=== PATIENT | female | born 1940 | race Caucasian/White ===

== ENCOUNTER → 2016-10-21 | Outpatient (CLI) | payer OTHER | LOC: BMCIMAGING 09:43 | PROVIDERS: ATTEND Internal Medicine | DX: Z01.811 Encounter for preprocedural respiratory examination (principal); R91.8 Other nonspecific abnormal finding of lung field; M41.25 Other idiopathic scoliosis, thoracolumbar region ==

== ENCOUNTER → 2016-10-24 | Outpatient (CLI) | payer OTHER | LOC: CIMAGING 14:00 | PROVIDERS: ATTEND Internal Medicine | DX: R91.8 Other nonspecific abnormal finding of lung field (principal) | CPT/HCPCS: 71250-PO ==

== ENCOUNTER 2016-10-30 07:15 | Inpatient (IN) | payer OTHER ==
[2016-11-04] MEDS ORDERED: ONDANSETRON 4 MG/2 ML VIAL ONE (12:44)
[2016-11-04] MEDS ORDERED: MIDAZOLAM 2 MG/2 ML VIAL ONE (12:45)
[2016-11-04] MEDS ORDERED: FLUMAZENIL 0.5 MG/5 ML MDV IVP ONE (12:45)
[2016-11-04] MEDS ORDERED: fentaNYL 100 MCG/2 ML INJ ONE (12:45)
[2016-11-04] MEDS ORDERED: NALOXONE HCL 0.4 MG/ML INJ ONE (12:45)
[2016-11-20] MEDS ORDERED: LIDOCAINE 1% 2 ML INJ ONE (05:50)
[2016-11-20] MEDS ORDERED: ceFAZolin 2 GM/DEXTROSE 100 ML IV ONE (06:00)
[2016-11-20] MEDS ORDERED: DEXAMETHASONE 10 MG/ML VIAL IVP ONE (06:00)
[2016-11-20] MEDS ORDERED: LIDOCAINE 1% 5 ML SDV ID PRN (06:08)
[2016-11-20] MEDS ORDERED: LR 1,000 ML IV ONE (06:08)
[2016-11-20] MEDS ORDERED: THROMBIN (BOVINE) 20,000 UNIT VIAL TP ONE (06:32)
[2016-11-20] MEDS ORDERED: BACITRACIN 50,000 UNITS/10 ML SYR IRR ONE (06:33)
[2016-11-20] MEDS ORDERED: BUPIVACAINE/EPI 0.25% 30 ML SDV ONE (06:33)
[2016-11-20] MEDS ORDERED: MIDAZOLAM 2 MG/2 ML VIAL ONE (06:59)
[2016-11-20] MEDS ORDERED: REMIFENTANIL HCL 1 MG VIAL ONE ×2 (07:15→11:48)
[2016-11-20] MEDS ORDERED: LIDOCAINE 2% 5 ML SDV ONE (07:15)
[2016-11-20] MEDS ORDERED: ONDANSETRON 4 MG/2 ML VIAL ONE (07:15)
[2016-11-20] MEDS ORDERED: PROPOFOL/EMULSION 500 MG/50 ML BOTTLE IV ONE ×2 (07:15→07:20)
[2016-11-20] MEDS ORDERED: ROCURONIUM 50 MG/5 ML VIAL ONE (07:15)
[2016-11-20] MEDS ORDERED: fentaNYL 100 MCG/2 ML INJ ONE ×3 (07:15→14:34)
[2016-11-20] MEDS ORDERED: RANITIDINE 50 MG/2 ML VIAL ONE (07:21)
[2016-11-20] MEDS ORDERED: AMINOCAPROIC ACID IV ONE ×2 (07:30)
[2016-11-20] MEDS ORDERED: D5W IV ONE ×2 (07:30)
[2016-11-20] MEDS ORDERED: epHEDrine SULFATE 10 MG/ML SYR ONE ×3 (07:35→08:50)
[2016-11-20] MEDS ORDERED: CITRATE DEXTROSE SOLN 500 ML BAG ONE (08:07)
[2016-11-20] MEDS ORDERED: ceFAZolin 1 GM VIAL ONE ×2 (11:51)
[2016-11-20] MEDS ORDERED: PHENYLEPHRINE 10 MG/ML SDV ONE ×2 (11:53)
[2016-11-20 11:56] LABS: BICARBONATE 20 mEq/L (22-26); IONIZED CALCIUM 1.01 MMOL/L (1.12-1.30); MEASURED OXYGEN SATURATION 100 % (92-95); PCO2 34 mmHg (34-38); PO2 293 mmHg (65-75); SODIUM ABG 140 mEq/L (137-146); TCO2 21 mEq/L (23-27)
[2016-11-20] MEDS ORDERED: CALCIUM CHLORIDE 1 GM/10 ML INJ ONE (12:26)
[2016-11-20] MEDS ORDERED: ALBUMIN 5% 250 ML BOTTLE IV ONE (12:43)
[2016-11-20] MEDS ORDERED: POLYETHYLENE GLYCOL 3350 17 GM PKT PO PRN (13:46)
[2016-11-20] MEDS ORDERED: DIAZEPAM 5 MG TAB PO PRN (13:46)
[2016-11-20] MEDS ORDERED: DIAZEPAM 10 MG/2 ML SYR IVP PRN (13:46)
[2016-11-20] MEDS ORDERED: diphenhydrAMINE 25 MG CAP PO PRN ×2 (13:46)
[2016-11-20] MEDS ORDERED: ACETAMINOPHEN 325 MG TAB PO PRN (13:46)
[2016-11-20] MEDS ORDERED: LACTULOSE 20 GM/30 ML UDCUP PO PRN (13:46)
[2016-11-20] MEDS ORDERED: HYDROmorphONE/DILAUDID 1 MG/ML SYR IVP PRN (13:46)
[2016-11-20] MEDS ORDERED: METHOCARBAMOL 750 MG TAB PO PRN (13:46)
[2016-11-20] MEDS ORDERED: BISACODYL 10 MG SUPP PR PRN (13:46)
[2016-11-20] MEDS ORDERED: ONDANSETRON 4 MG/2 ML VIAL IVP PRN (13:46)
[2016-11-20] MEDS ORDERED: MAGNESIUM HYDROXIDE 30 ML UDCUP PO PRN (13:46)
[2016-11-20 13:56] LABS: BASE EXCESS -2.5 mEq/L (-2.5-2.5); BICARBONATE 23 mEq/L (22-26); MEASURED OXYGEN SATURATION 98 % (92-95); PCO2 44 mmHg (34-38); PO2 113 mmHg (65-75); TCO2 24 mEq/L (23-27)
[2016-11-20] MEDS ORDERED: NS W/ 20 KCl/L 1,000 ML IV SCH (14:00)
--- NOTE | 2016-11-20 14:24 | POSTOPPROG ---
Post Op Note Date of Operation: 11/20/16 Surgeon: Zoe Pearce Service Desk Specialist: Kyung Perez PA-C Anesthesia: GET(General Endotracheal) Pre-op Diagnosis: Lumbar stenosis Post-op Diagnosis: Lumbar stenosis Procedure: Transforaminal lumbar interbody fusion at L3-S1 Inf/Abcess present in the surg proc area at time of surgery?: No Depth: Deep Incisional (Fascial) EBL: 100-500 A/P Assessment: 76 yo female s/p TLIF L3-S1 Plan: - neuro checks - pain control - advance diet as tolerated - ROBIN drain x 1 - postop L-spine x-rays in am - PT/OT - wear brace when OOB Exam: Awake. Alert. PERRL. EOMI Following commands LE strength 5/5 Sensation intact Incision with dressing c/d/i
--- NOTE | 2016-11-20 14:32 | GOP ---
[f rep st] OPERATIVE REPORT DATE OF OPERATION: SURGEON: Zoe Pearce DO NEUROSURGEON: Zoe Pearce DO. GRAPHIC SPECIALIST: RAEANN. PREOPERATIVE DIAGNOSIS: Lumbar spondylosis, lumbar stenosis, lumbar radiculopathy. POSTOPERATIVE DIAGNOSIS: Lumbar spondylosis, lumbar stenosis, lumbar radiculopathy. PROCEDURE PERFORMED: L3-4, L4-5, L5-S1 transforaminal lumbar interbody fusion with L3, L4, L5, S1 p osterior pedicle screws with Medtronic 4.75 Solera screws, Medtronic 7 x 23 mm Elevate cage at L3-4 and 8 x 23 mm cage at L5-S1, and at L4-5 Medtronic Mancos PEEK graft x2, 7 x 25 mm. Autograft, al lograft, bone morphogenetic protein, Stealth stereotaxis, microscope, neuromonitoring. FINDINGS: SPECIMENS: None. ESTIMATED BLOOD LOSS: 500 mL. INDICATIONS: This is a 76-year-old female with back pain and leg pain whose case was presented in [facility] case conference. She had some scoliosis, some degenerative spondylosis, stenosis, back pain, and leg pain, and it was recommended that she undergo a posterior L3-4, L4-5, L5-S1 inter body fusion. She elected to move forward with surgery. DESCRIPTION OF PROCEDURE: She was identified, consented. Sites were marked. Brought into the oper ating room, anesthetized under general endotracheal tube anesthesia, rolled onto the OR bed with the Codey table. All pressure points were appropriately padded. She was prepped and draped in the u sual sterile fashion. O-arm was brought in, and incision was marked using 18-gauge spinal needles. Incision was anesthetized with 0.25% Marcaine with epinephrine. Incision was made with a 10 blade. Hemostasis was obtained with Bovie, bipolar, and Aquamantys. We dissected down onto the laminae o f L3, L4, L5, and S1 and out around the facet joints at these levels. X-ray verified we were in the appropriate position. Placed a Thomas-Krenn stereotactic arm, performed a stereotactic spin. Using the awl stereotactically, we found a starting point for the S1 screw on the left and then use d the Powerease 5.5 tap to stereotactically tap and measure a 6.5 x 40 mm screw. We then stereotact ically placed a 6.5 x 40 mm screw at S1 on the left using the Mirametrixtronic Solera system. We then perf ormed the same procedure at L5 on the left, using a ball-tip probe to verify the screw holes were in good position prior to placing the screws. Placed a 6.5 x 45 mm screw, then, at L4 on the left, pl aced a 6.5 x 45 mm screw using the same procedure. At L3 on the left, placed a 6.5 x 50 mm screw us ing the same procedure, then went over to the right. On the right, placed a 6.5 x 45 mm screw at S1 using the same stereotactic procedure. At L5, placed a 6.5 x 45 mm screw, at L4 a 6.5 x 45 mm scre w, and at L3 a 6.5 x 50 mm screw, all using the same stereotactic procedure. We stimmed all screws. All screws stimmed above 20. We then performed a stereotactic spin. All screws were in the appro priate positions and were satisfactory. We then measured and bent the rods appropriately, placed th e right-sided aleena, placed caps, and then locked the inferior cap, verifying we had aleena below it, the n placed distraction on this level to get some correction of her scoliotic curve at these levels, lo cking caps using the antitorque device. We then placed a aleena, elected not to place distraction on t he other side so as not to exaggerate the curve any further, measured and placed the aleena, locked the caps down with the final asset protection officer. We then used the Leksell to remove the spinous process, inters pinous ligament, and then used a high-speed drill to stereotactically drill out the facet joints on the left side, as the TLIF was going to be performed from the right. Once the facet joints were ruddy ified to be drilled out and there was no further soft tissue in the facet joints and we had decortic ated the entire left side, we used the high-speed drill to perform laminectomy, complete facetectomy at L3-4, L4-5, and L5-S1, extending this with 2, 3, and 4 Kerrisons until we had completely bilater ally decompressed the thecal sac and completely decompressed the foramina at L3-4, L4-5, and L5-S1 p edicle to pedicle. We then used the Medtronic nerve root retractor to retract the thecal sac medial ly at L5-S1, entered the disk space with an 11 blade, and removed the disk space with pituitaries an d a series of sequential itzel. Once the disk and cartilaginous endplate had been removed, we pre pared the endplates with a ring curette and then measured an 8 x 23 mm Elevate cage, which was packe d with BMP and the patient's own bone. We packed BMP and the patient's own bone anteriorly in the d isk space, then tamped the cage into place, verified it was in good position on AP and lateral, and then fully discharged the Elevate cage to its fullest extent, removed the applicator, moved up to L4 -5, which was the tightest disk space. Retracting the thecal sac medially with a Mirametrixtronic nerve ro ot retractor, entered the disk space with an 11 blade, and used small sequential itzel to complete ly remove the disk and cartilaginous endplate, preparing the endplate with a ring curette. We were only able to place Mancos cages here. I was able to tamp in two 7 x 25 mm Mancos cages, which w ere verified to be in the appropriate position under AP and lateral fluoroscopy. We had filled both cages with BMP and the patient's own bone, as well as the anterior aspect of the disk space with BM P and the patient's own bone. We then moved up to L5-S1 and, retracting the nerve root medially wit h a Mirametrixtronic nerve root retractor, entered the disk space with an 11 blade and removed the disk wit h pituitaries and sequential itzel until we had removed the cartilaginous endplate, prepared the e ndplate with ring curette, and then measured a 7 x 23 mm Elevate cage, packed BMP and the patient's own bone anteriorly, packed the cage with BMP and the patient's own bone, and tamped it into place. Under AP and lateral fluoroscopy, it was in good position. We then verified with final x-ray that we were in good position, copiously irrigated with over 2 L of bacitracin-infused saline, placed BMP and Progenix Plus as well as the patient's own harvested bone out laterally in the lateral recesses as well as into the facet joints that had been decorticated on the left side. We then attempted to place a crosslink; however, there was not an appropriate position to place the crosslink, so we jaycee ndoned this. We trocar'd a drain out inferiorly, placed it into the subfascial space, closed the fa scia with 0 Vicryl pop-offs, subcutaneous layer with 2-0 Vicryl pop-offs, subcutaneous layer with 3- 0 Vicryl pop-offs. The skin was closed with a 4-0 running Monocryl, Steri-Strips. The drain was ve rified not to be sutured to the fascia but was easily able to be removed. We then sutured it to sec ure it with a 2-0 Vicryl pop-off, placed it to bulb suction. The wound was dressed with Xeroform, T egaderm, and Medipore tape. The patient tolerated procedure well. No complications. FLUIDS: 3 L crystalloid, 250 mL albumin. URINE OUTPUT: 1200 mL crystalloid. DRAINS: One ROBIN in the subfascial space to bulb suction. COMPLICATIONS: None. /[id number]/MODL
[2016-11-20 14:36] LABS: SODIUM 141 mEq/L (134-144)
[2016-11-20 14:40] LABS: IONIZED CALCIUM 1.36 MMOL/L (1.12-1.30)
[2016-11-20] MEDS: GABAPENTIN 400 MG CAP PO SCH ×2 (15:51→21:00)
[2016-11-20] MEDS: GABAPENTIN 100 MG CAP PO SCH ×2 (15:51→21:00)
[2016-11-20] MEDS: HYDROmorphONE/DILAUDID 2 MG TAB PO PRN ×3 (16:38→23:40)
[2016-11-20] MEDS: SENNOSIDES/DOCUSATE SODIUM TAB PO SCH (19:55)
[2016-11-20] MEDS: ONDANSETRON DISINTEGRATING 4 MG TAB PO PRN ×2 (21:00→23:42)
[2016-11-21] MEDS: HYDROmorphONE/DILAUDID 2 MG TAB PO PRN ×4 (04:06→18:40)
[2016-11-21] MEDS: ONDANSETRON DISINTEGRATING 4 MG TAB PO PRN ×4 (04:07→18:40)
[2016-11-21 05:27] LABS: % IMMATURE GRANULYOCYTES 0.4 % (0.0-1.1); ABSOLUTE IMMATURE GRANULOCYTES 0.04 10^3/uL (0.00-0.10); ADD DIFF? NO; ADD MORPH? NO; ADD SCAN? NO; ATYPICAL LYMPHOCYTE FLAG 0 (0-99); FRAGMENT RBC FLAG 0 (0-99); HEMATOCRIT 26.4 % (38.0-47.0); HEMOGLOBIN 8.4 g/dL (12.6-16.3); LEFT SHIFT FLG 0 (0-99); LIPEMIA HEMOLYSIS FLAG 80 (0-99); MEAN CELL HEMOGLOBIN 31.2 pg (27.9-34.1); MEAN CELL HEMOGLOBIN CONCENTR. 31.8 g/dL (32.4-36.7); MEAN CELL VOLUME 98.1 fL (81.5-99.8); MEAN PLATELET VOLUME 10.7 fL (8.7-11.7); PLATELET CLUMPS FLAG 0 (0-99); PLATELET COUNT 195 10^3/uL (150-400); RED BLOOD CELL COUNT 2.69 10^6/uL (4.18-5.33); RED CELL DISTRIBUTION WIDTH 12.9 % (11.5-15.2)
[2016-11-21 05:46] LABS: ANION GAP 6 mEq/L (8-16); CALCIUM 8.3 mg/dL (8.5-10.4); CARBON DIOXIDE 27 mEq/l (22-31); CHLORIDE 105 mEq/L (97-110); CREATININE 0.6 mg/dL (0.6-1.0); GLOMERULAR FILTRATION RATE > 60; GLUCOSE 102 mg/dL (70-100); POTASSIUM 4.3 mEq/L (3.5-5.2); SODIUM 138 mEq/L (134-144)
[2016-11-21] MEDS: CHOLECALCIFEROL VIT D3 1,000 UNITS TAB PO SCH (08:31)
[2016-11-21] MEDS: GABAPENTIN 100 MG CAP PO SCH ×3 (08:31→20:24)
[2016-11-21] MEDS: GABAPENTIN 400 MG CAP PO SCH ×3 (08:31→20:24)
[2016-11-21] MEDS: SENNOSIDES/DOCUSATE SODIUM TAB PO SCH ×2 (08:31→20:24)
[2016-11-21] MEDS: PANTOPRAZOLE SODIUM 40 MG TAB PO SCH (08:33)
--- NOTE | 2016-11-21 08:54 | NEUSURGPN ---
Assessment/Plan: 76 yo female s/p TLIF L3-S1, POD#1 Plan: - neuro checks - pain control - advance diet as tolerated - ROBIN drain x 1 - postop L-spine x-rays in am - PT/OT - wear brace when OOB Catheter Insertion Date: 11/20/16 Neurosurgery Physical Exam - Vitals, I&O, Labs I and O 11/20/16 11/21/16 11/22/16 05:59 05:59 05:59 Intake Total 5175 Output Total 3330 Balance 1845 Weight 54.431 kg Intake: Oral (ml) 600 IV Intake (ml) 3350 IV Infused (ml) 1225 NS W/ 20 KCl/L 1,000 ml @ 1125 75 mls/hr IV CONT PELON Rx #:[id number] ceFAZolin 1 GM/DEXTROSE 100 50 ml @ 200 mls/hr IV Q8H PELON Rx#:[id number] Output: Urine (ml) 2550 Catheter 2550 Estimated Blood Loss (ml) 500 Wound Drainage (ml) 280 Posterior Back Codey 280 Artis Vital Signs Temp Pulse Resp BP Pulse Ox 36.8 C 85 16 91/36 L 97 11/21/16 07:47 11/21/16 07:47 11/21/16 07:47 11/21/16 07:47 11/21/16 07:47 Laboratory Results 11/21/16 04:53 11/21/16 04:53 ICD10 Worksheet Patient Problems: Problems Problem Status Onset Primary osteoarthritis of right hip Acute
--- NOTE | 2016-11-21 08:55 | NEUSURGPN ---
Assessment/Plan: 76 yo female s/p TLIF L3-S1, POD#1 Plan: - neuro checks - pain control - advance diet as tolerated - ROBIN drain x 1 - 280 out so far, leave in place. - postop L-spine x-rays pending - TEDs, SCDs, lovenox 11/22 - PT/OT - Roberts is out - wear brace when OOB - Patient seen with Dr Pearce this AM - Please call NS with any issues Subjective: Pt resting in bed, c/o back pain. Denies leg pain. Pain medications helping. Objective: AAOx3 NAD VSS MAEx4 Motor 5/5 BLE Incision dressed cdi +LT ROBIN productive Roberts out Urinary Catheter in Place: No Catheter Insertion Date: 11/20/16 - Physician Discussed Patient with : Ramses Patient Seen by : Ramses Neurosurgery Physical Exam - Vitals, I&O, Labs I and O 11/20/16 11/21/16 11/22/16 05:59 05:59 05:59 Intake Total 5175 Output Total 3330 Balance 1845 Weight 54.431 kg Intake: Oral (ml) 600 IV Intake (ml) 3350 IV Infused (ml) 1225 NS W/ 20 KCl/L 1,000 ml @ 1125 75 mls/hr IV CONT PELON Rx #:[id number] ceFAZolin 1 GM/DEXTROSE 100 50 ml @ 200 mls/hr IV Q8H PELON Rx#:[id number] Output: Urine (ml) 2550 Catheter 2550 Estimated Blood Loss (ml) 500 Wound Drainage (ml) 280 Posterior Back Codey 280 Artis Vital Signs Temp Pulse Resp BP Pulse Ox 36.8 C 85 16 91/36 L 97 11/21/16 07:47 11/21/16 07:47 11/21/16 07:47 11/21/16 07:47 11/21/16 07:47 Laboratory Results 11/21/16 04:53 11/21/16 04:53 ICD10 Worksheet Patient Problems: Problems Problem Status Onset Primary osteoarthritis of right hip Acute
[2016-11-22] MEDS: HYDROmorphONE/DILAUDID 2 MG TAB PO PRN ×3 (05:26→20:31)
[2016-11-22] MEDS: ONDANSETRON DISINTEGRATING 4 MG TAB PO PRN ×3 (05:26→20:30)
--- NOTE | 2016-11-22 08:53 | NEUSURGPN ---
Assessment/Plan: 76 yo female s/p TLIF L3-S1, POD#2 Plan: - neuro checks - Optimize pain control - advance diet as tolerated - ROBIN drain x 1 - postop L-spine x-rays pending - TEDs, SCDs, lovenox 11/22 - PT/OT - wear brace when OOB - Patient discussed with Dr Pearce this AM\ -Will place case management consult for rehab planning in the next 1-2days - Please call NS with any issues Subjective: low back pain, leg weakness stable Objective: AAOx3 NAD MAEx4 Motor 5/5 BLE Incision dressed cdi ROBIN Serosanguineous Catheter Insertion Date: 11/20/16 - Physician Discussed Patient with Dr.: Ramses Neurosurgery Physical Exam - Vitals, I&O, Labs I and O 11/21/16 11/22/16 11/23/16 05:59 05:59 05:59 Intake Total 5175 2300 Output Total 3330 611 Balance 1845 1689 Weight 54.431 kg Intake: Oral (ml) 600 2300 IV Intake (ml) 3350 IV Infused (ml) 1225 NS W/ 20 KCl/L 1,000 ml @ 1125 75 mls/hr IV CONT PELON Rx #:[id number] ceFAZolin 1 GM/DEXTROSE 100 50 ml @ 200 mls/hr IV Q8H PELON Rx#:[id number] Output: Urine (ml) 2550 300 Catheter 2550 Toilet 300 Estimated Blood Loss (ml) 500 Wound Drainage (ml) 280 311 Posterior Back Codey 280 311 Artis Other: Number of Voids Toilet 1 1 Vital Signs Temp Pulse Resp BP Pulse Ox 36.8 C 85 18 106/40 L 91 L 11/22/16 08:26 11/22/16 08:26 11/22/16 08:26 11/22/16 08:26 11/22/16 08:26 Laboratory Results 11/21/16 04:53 11/21/16 04:53 ICD10 Worksheet Patient Problems: Problems Problem Status Onset Primary osteoarthritis of right hip Acute
[2016-11-22] MEDS: GABAPENTIN 100 MG CAP PO SCH ×3 (09:11→20:30)
[2016-11-22] MEDS: SENNOSIDES/DOCUSATE SODIUM TAB PO SCH ×2 (09:12→20:30)
[2016-11-22] MEDS: PANTOPRAZOLE SODIUM 40 MG TAB PO SCH (09:12)
[2016-11-22] MEDS: ENOXAPARIN 40 MG/0.4 ML SYR SC SCH (09:12)
[2016-11-22] MEDS: CHOLECALCIFEROL VIT D3 1,000 UNITS TAB PO SCH (09:12)
[2016-11-22] MEDS: GABAPENTIN 400 MG CAP PO SCH ×3 (09:12→20:30)
[2016-11-23 01:56] VITALS: O2SAT 95
[2016-11-23] MEDS: ONDANSETRON DISINTEGRATING 4 MG TAB PO PRN ×2 (05:22→10:46)
[2016-11-23] MEDS: HYDROmorphONE/DILAUDID 2 MG TAB PO PRN ×2 (05:22→10:47)
[2016-11-23 07:15] VITALS: BP 110/49; PULSE 78; RESP 16; TEMP 98.4
[2016-11-23] MEDS: ENOXAPARIN 40 MG/0.4 ML SYR SC SCH (09:01)
[2016-11-23] MEDS: GABAPENTIN 100 MG CAP PO SCH (09:02)
[2016-11-23] MEDS: PANTOPRAZOLE SODIUM 40 MG TAB PO SCH (09:02)
[2016-11-23] MEDS: GABAPENTIN 400 MG CAP PO SCH (09:02)
[2016-11-23] MEDS: SENNOSIDES/DOCUSATE SODIUM TAB PO SCH (09:03)
[2016-11-23] MEDS: CHOLECALCIFEROL VIT D3 1,000 UNITS TAB PO SCH (09:03)
[2016-11-23] MEDS ORDERED: CANN-EASE 2 GM TUBE TP ONE (09:10)
--- NOTE | 2016-11-23 10:33 | SOAPPROG ---
SOAP Progress Note Assessment/Plan: Assessment: 76 yo female s/p TLIF L3-S1, POD#3 Plan: - neuro checks - Optimize pain control, tolerating orals only - tolerating diet - ROBIN removed - postop L-spine xrays hardware in good position - TEDs, SCDs, lovenox 11/22 - PT/OT - wear brace when OOB -OK for lovenox -Has rehab bed, ok for transfer - Please call NS with any issues 11/23/16 10:30 Subjective: Doing well. Pain well controlled on orals. Increases when oob but able to mobilize, leg pain resolved, drain removed Objective: Vital Signs Temp Pulse Resp BP Pulse Ox 36.9 C 78 16 110/49 L 95 11/23/16 07:14 11/23/16 07:14 11/23/16 07:14 11/23/16 07:14 11/23/16 07:14 Laboratory Results 11/21/16 04:53 11/21/16 04:53 11/22/16 11/23/16 11/24/16 05:59 05:59 05:59 Intake Total 2300 1050 Output Total 611 455 Balance 1689 595 AandOx3, PERRL, EOMI, no facial asymmetry or tongue deviation, MAEWx4, incision c/d/i, dressing removed steristrips intact, drain removed - Pending Discharge Pending Discharge Within 24 Hours: Yes Pending Discharge Date: 11/24/16 Pending Discharge Time: 11:00 ICD10 Worksheet Patient Problems: Problems Problem Status Onset Primary osteoarthritis of right hip Acute
--- NOTE | 2016-11-23 10:35 | PDIAF ---
- Diagnosis Code Status: Full Code - Medication Management Discharge Medications: Medications to Continue on Transfer C/E/Zn/Cu/OM3/DHA/EPA/LUT/ZEAX [Preservision Areds 2 Softgel] 1 each PO BID [Last Taken 10/22/16] Cholecalciferol Vit D3 [Vitamin D3 (*)] 1,000 units PO DAILY 03/10/14 [Last Taken 10/22/16] Omeprazole [Prilosec 20 mg] 20 mg PO DAILY 03/10/14 [Last Taken 11/19/16 08:00] Gabapentin [Neurontin 100 MG (*)] 100 mg PO TID 10/03/16 [Last Taken 11/20/16 05 :15] Gabapentin [Neurontin 400 MG (*)] 400 mg PO TID 10/03/16 [Last Taken 11/20/16 05 :15] Discharge Medications: Refer to the Discharge Home Medication list for PRN reason. - Orders Services needed: Registered Nurse, Physical Therapy, Occupational Therapy - Follow Up Care Current Providers and Referrals: Mayuri Arreguin MD [Primary Care Provider] -
== END 2016-11-23 13:37 | DRG 460 ==
LOC: F3N 11-20 05:42
PROVIDERS: ADMIT Neurological Surgery; ATTEND Neurological Surgery
PROC: 3E0U0GB Introduction of Recombinant Bone Morphogenetic Protein into Joints, Open Approach (ICD-10-PCS; principal; 2016-11-20 07:15)
PROC: 8E0WXBF Computer Assisted Procedure of Trunk Region, With Fluoroscopy (ICD-10-PCS; principal; 2016-11-20 07:15)
PROC: 0ST20ZZ Resection of Lumbar Vertebral Disc, Open Approach (ICD-10-PCS; principal; 2016-11-20 07:15)
PROC: 0SG30AJ Fusion of Lumbosacral Joint with Interbody Fusion Device, Posterior Approach, Anterior Column, Open Approach (ICD-10-PCS; principal; 2016-11-20 07:15)
PROC: 0SG10AJ Fusion of 2 or more Lumbar Vertebral Joints with Interbody Fusion Device, Posterior Approach, Anterior Column, Open Approach (ICD-10-PCS; principal; 2016-11-20 07:15)
PROC: 0ST40ZZ Resection of Lumbosacral Disc, Open Approach (ICD-10-PCS; principal; 2016-11-20 07:15)
PROC: 4A1004G Monitoring of Central Nervous Electrical Activity, Intraoperative, Open Approach (ICD-10-PCS; principal; 2016-11-20 07:15)
PROC: 00NY0ZZ Release Lumbar Spinal Cord, Open Approach (ICD-10-PCS; principal; 2016-11-20 07:15)
DX: M47.26 Other spondylosis with radiculopathy, lumbar region (principal); M41.80 Other forms of scoliosis, site unspecified; M48.06 Spinal stenosis, lumbar region; K21.9 Gastro-esophageal reflux disease without esophagitis
CPT/HCPCS: 97116-GP; 97161-GP; 97165-GO; 97530-GP; 97535-GO; C1713; G8978-GP-CK; G8979-GP-CI; G8980-GP-CI; G8987-GO-CI; G8988-GO-CI; J0690; J1650; J2250; J2310; J2370; J2405; J2704; J2780; J3010; J7060; P9041

== ENCOUNTER 2016-11-04 11:36 | Day surgery (SDC) | payer OTHER ==
[2016-11-04 12:22] LABS: HEMATOCRIT 43.8 % (38.0-47.0)
[2016-11-04 12:34] LABS: PROTIME(PATIENT) 13.1 SEC (12.0-15.0)
[2016-11-04 12:35] LABS: APTT 28.8 SEC (23.0-38.0)
[2016-11-04] MEDS ORDERED: ONDANSETRON 4 MG/2 ML VIAL IVP PRN (16:05)
[2016-11-04] MEDS ORDERED: ACETAMINOPHEN 325 MG TAB PO PRN (16:05)
== END 2016-11-04 15:29 | disposition home or self-care (01) ==
LOC: FIMAGING 11:36
PROVIDERS: ATTEND Internal Medicine
PROC: 0BBJ3ZX Excision of Left Lower Lung Lobe, Percutaneous Approach, Diagnostic (ICD-10-PCS; principal; 2016-11-04 14:20)
DX: R91.8 Other nonspecific abnormal finding of lung field (principal)

== ENCOUNTER 2016-11-25 23:34 | Inpatient (IN) | payer OTHER ==
--- NOTE | 2016-11-26 | CPEKG ---
Heart Rate: 147 RR Interval: 408 QRSD Interval: 74 QT Interval: 308 QTC Interval: 482 QRS [place]: 60 T Wave [place]: -10 EKG Severity - ABNORMAL ECG - EKG Impression: ATRIAL FIBRILLATION, V-RATE 118-185 EKG Impression: BORDERLINE T ABNORMALITIES, INFERIOR LEADS EKG Impression: ATRIAL FIBRILLATION IS NEW IN COMPARISON TO PRIOR ECG Electronically Signed By: Ramirez Hussein 26-Nov-2016 09:01:13
[2016-11-26 00:19] LABS: % IMMATURE GRANULYOCYTES 1.2 % (0.0-1.1); ABSOLUTE IMMATURE GRANULOCYTES 0.13 10^3/uL (0.00-0.10); ABSOLUTE NRBC COUNT 0.05 10^3/uL (0-0.01); ADD DIFF? NO; ADD MORPH? NO; ADD SCAN? NO; ATYPICAL LYMPHOCYTE FLAG 0 (0-99); FRAGMENT RBC FLAG 0 (0-99); HEMATOCRIT 24.6 % (38.0-47.0); HEMOGLOBIN 8.3 g/dL (12.6-16.3); LEFT SHIFT FLG 10 (0-99); LIPEMIA HEMOLYSIS FLAG 80 (0-99); MEAN CELL HEMOGLOBIN 31.4 pg (27.9-34.1); MEAN CELL HEMOGLOBIN CONCENTR. 33.7 g/dL (32.4-36.7); MEAN CELL VOLUME 93.2 fL (81.5-99.8); NRBC-AUTO% 0.5 % (0.0-0.2); PLATELET CLUMPS FLAG 10 (0-99); PLATELET COUNT 263 10^3/uL (150-400); RED BLOOD CELL COUNT 2.64 10^6/uL (4.18-5.33); RED CELL DISTRIBUTION WIDTH 12.5 % (11.5-15.2)
[2016-11-26 00:56] LABS: ANION GAP 10 mEq/L (8-16); CALCIUM 7.9 mg/dL (8.5-10.4); CARBON DIOXIDE 25 mEq/l (22-31); CHLORIDE 90 mEq/L (97-110); CREATININE 1.2 mg/dL (0.6-1.0); GLOMERULAR FILTRATION RATE 44; GLUCOSE 143 mg/dL (70-100); POTASSIUM 4.8 mEq/L (3.5-5.2); SODIUM 125 mEq/L (134-144)
[2016-11-26] MEDS ORDERED: DILTIAZEM 25 MG/5 ML VIAL IVP ONE (00:59)
[2016-11-26 01:08] LABS: TROPONIN I 0.208 ng/mL (0-0.034)
[2016-11-26] MEDS ORDERED: ASPIRIN 81 MG CHEWABLE TAB PO ONE (01:14)
--- NOTE | 2016-11-26 01:23 | EDPHY ---
H & P Stated Complaint: low BP, weakness Time Seen by Provider: 11/26/16 00:24 HPI/ROS: HPI The patient presents with generalized weakness, confusion for the last 2 days. It started yesterday when she felt she was in coherent, talking more slowly than usually and generally feeling confused. Her family members noted that she was nodding off frequently when she was speaking with them. She has not had much of an appetite, but has been able to drink water. She was admitted to the hospital until a few days ago after undergoing a laminectomy. She had a normal postoperative course and has been at an acute rehab facility. Yesterday night, she did have an episode of chest tightness which is now mostly resolved. This occurred at rest. She had some lab work done because of her symptoms from the rehab facility which demonstrated that she was slightly anemic with a hemoglobin of 8.7 and had electrolyte abnormalities with sodium of 122 and chloride of 85 with elevated liver tests. She has no prior history of atrial fibrillation. REVIEW OF SYSTEMS Constitutional: No fever, no chills. Eyes: No discharge. ENT: No sore throat. Cardiovascular: No chest pain, no palpitations. Respiratory: No cough, no shortness of breath. Gastrointestinal: No abdominal pain, no vomiting. Genitourinary: No hematuria. Musculoskeletal: No back pain. Skin: No rashes. Neurological: No headache. PMHx: Previous orthopedic surgeries, recent laminectomy Soc Hx: Currently residing at [facility] PHYSICAL General Appearance: Alert, no distress Eyes: Pupils equal and round no pallor or injection ENT, Mouth: Mucous membranes dry Respiratory: There are no retractions, lungs are clear to auscultation Cardiovascular: Irregularly irregular Gastrointestinal: Abdomen is soft and non-tender, no masses, bowel sounds normal Neurological: A&O, moves all extremities Skin: Warm and dry, no rashes Musculoskeletal: Neck is supple non tender, brace on torso Extremities: symmetrical, full range of motion Psychiatric: Patient is oriented X 3, there is no agitation Source: Patient, Old records Exam Limitations: No limitations - Personal History Current Tetanus/Diphtheria Vaccine: Yes Current Tetanus Diphtheria and Acellular Pertussis (TDAP): Yes - Medical/Surgical History Hx Asthma: No Hx Chronic Respiratory Disease: No Hx Diabetes: No Hx Cardiac Disease: No Hx Renal Disease: No Hx Cirrhosis: No Hx Alcoholism: No Hx HIV/AIDS: No Hx Splenectomy or Spleen Trauma: No Other PMH: Macular degeneration, Bilat Knees, Bilat TKA, Osteoporosis, laminectomy - Social History Smoking Status: Never smoked Constitutional: Initial Vital Signs Temperature (C) 36.7 C 11/25/16 23:52 Heart Rate 137 H 11/25/16 23:52 Respiratory Rate 18 11/25/16 23:52 Blood Pressure 108/73 11/25/16 23:52 O2 Sat (%) 94 11/25/16 23:52 O2 Delivery Mode Nasal Cannula O2 (L/minute) 2 Allergies/Adverse Reactions: Sulfa (Sulfonamide Antibiotics) Allergy (Severe, Verified 11/25/16 23:52) MOUTH SWELLS acetaminophen [From Vicodin] Allergy (Verified 11/25/16 23:52) hydrocodone [From Vicodin] Allergy (Verified 11/25/16 23:52) oxycodone [From Percocet] Allergy (Verified 11/25/16 23:52) LACTOSE INTOLERANT Allergy (Intermediate, Uncoded 11/25/16 23:52) UPSET STOMACH, GAS, IBS, DIARRHEA Home Medications: Medication Instructions Recorded C/E/Zn/Cu/OM3/DHA/EPA/LUT/ZEAX 1 each PO BID 03/10/14 [Preservision Areds 2 Softgel] Cholecalciferol Vit D3 [Vitamin D3 1,000 units PO DAILY 03/10/14 (*)] Omeprazole [Prilosec 20 mg] 20 mg PO DAILY 03/10/14 Gabapentin [Neurontin 100 MG (*)] 100 mg PO TID 10/03/16 Gabapentin [Neurontin 400 MG (*)] 400 mg PO TID 10/03/16 HYDROmorphone HCL [Dilaudid 2 mg 2 - 4 mg PO Q4HRS PRN #60 tab 11/23/16 (*)] Methocarbamol [Robaxin 750 mg (*)] 750 mg PO QID PRN #60 tab 11/23/16 Ondansetron Odt [Zofran Odt 4 mg 4 - 8 mg PO Q6HRS PRN #0 tab 11/23/16 (*)] Sennosides/Docusate Sodium 1 - 2 tab PO BID #0 tab 11/23/16 [Senokot-S] Medical Decision Making - Diagnostics EKG Interpretation: EKG: Complete interpretation has been separately recorded in the [facility] archive. Summary impression: Irregularly irregular rhythm with rate in the 140s Imaging: Chest x-ray shows mild basilar atelectasis, interpreted by the radiologist, images reviewed by me. CT scan chest with IV contrast demonstrates no pulmonary embolism, small amount of pleural fluid at the bases, discussed with the radiologist cash applications analyst. ED Course/Re-evaluation: In the emergency room, the patient was monitored. Because of her slightly low blood pressure she was given a 500 mL fluid bolus of normal saline. A diltiazem bolus was given with some improvement in her heart rate. Her pressures were slightly low. She was never symptomatic with her low blood pressures. Labs were checked and her BNP is elevated suggestive of new onset CHF. Her troponin was slightly elevated which is concerning given her recent history of chest tightness last night. She was given aspirin. Her liver tests were all elevated as well. This could be related to CHF. Her sodium was low as well as her chloride which could be caused by hypervolemic state. Her D-dimer returned elevated and given her recent operation with atrial fibrillation, CT scan of chest was obtained which showed no evidence of pulmonary embolism, however did show small bilateral pleural effusions. She will be admitted to the PCU, I have discussed the case with the hospitalist Dr. Fulton who will admit her. I have updated her family members at the bedside of this plan. Differential Diagnosis: This is a 76-year-old female brought in by ambulance from rehab facility where she is recovering from a laminectomy. She is had 2 days of confusion, general weakness, anorexia. She had labs checked today because of the symptoms which revealed mild anemia as well as elevated transaminases, hyponatremia and hypochloremia. - Data Points Laboratory Results: Laboratory Results 11/25/16 23:42 11/25/16 23:12 11/25/16 11/25/16 11/25/16 23:42 23:42 23:42 WBC 10.81 10^3/uL H 10^3/uL (3.80-9.50) RBC 2.64 10^6/uL L 10^6/uL (4.18-5.33) Hgb 8.3 g/dL L g/dL (12.6-16.3) Hct 24.6 % L % (38.0-47.0) MCV 93.2 fL fL (81.5-99.8) MCH 31.4 pg pg (27.9-34.1) MCHC 33.7 g/dL g/dL (32.4-36.7) RDW 12.5 % % (11.5-15.2) Plt Count 263 10^3/uL 10^3/uL (150-400) MPV 11.0 fL fL (8.7-11.7) Neut % (Auto) 71.7 % % (39.3-74.2) Lymph % (Auto) 16.7 % % (15.0-45.0) Person % (Auto) 9.4 % % (4.5-13.0) Eos % (Auto) 0.9 % % (0.6-7.6) Baso % (Auto) 0.1 % L % (0.3-1.7) Nucleat RBC Rel Count 0.5 % H % (0.0-0.2) Absolute Neuts (auto) 7.75 10^3/uL H 10^3/uL (1.70-6.50) Absolute Lymphs (auto) 1.80 10^3/uL 10^3/uL (1.00-3.00) Absolute Monos (auto) 1.02 10^3/uL H 10^3/uL (0.30-0.80) Absolute Eos (auto) 0.10 10^3/uL 10^3/uL (0.03-0.40) Absolute Basos (auto) 0.01 10^3/uL L 10^3/uL (0.02-0.10) Absolute Nucleated RBC 0.05 10^3/uL H 10^3/uL (0-0.01) Immature Gran % 1.2 % H % (0.0-1.1) Immature Gran # 0.13 10^3/uL H 10^3/uL (0.00-0.10) D-Dimer 6.67 ug/mLFEU H ug/mLFEU (0.00-0.50) Sodium Potassium Chloride Carbon Dioxide Anion Gap BUN Creatinine Estimated GFR Glucose Calcium Total Bilirubin 0.8 mg/dL mg/dL (0.1-1.4) Conjugated Bilirubin 0.5 mg/dL mg/dL (0.0-0.5) Unconjugated Bilirubin 0.3 mg/dL mg/dL (0.0-1.1) AST 690 IU/L H IU/L (14-46) ALT 762 IU/L H IU/L (9-52) Alkaline Phosphatase 102 IU/L IU/L (38-126) Troponin I NT-Pro-B Natriuret Pep Total Protein 5.4 g/dL L g/dL (6.3-8.2) Albumin 3.1 g/dL L g/dL (3.5-5.0) 11/25/16 23:12 WBC RBC Hgb Hct MCV MCH MCHC RDW Plt Count MPV Neut % (Auto) Lymph % (Auto) Person % (Auto) Eos % (Auto) Baso % (Auto) Nucleat RBC Rel Count Absolute Neuts (auto) Absolute Lymphs (auto) Absolute Monos (auto) Absolute Eos (auto) Absolute Basos (auto) Absolute Nucleated RBC Immature Gran % Immature Gran # D-Dimer Sodium 125 mEq/L L mEq/L (134-144) Potassium 4.8 mEq/L mEq/L (3.5-5.2) Chloride 90 mEq/L L mEq/L (97-110) Carbon Dioxide 25 mEq/l mEq/l (22-31) Anion Gap 10 mEq/L mEq/L (8-16) BUN 36 mg/dL H mg/dL (7-23) Creatinine 1.2 mg/dL H mg/dL (0.6-1.0) Estimated GFR 44 Glucose 143 mg/dL H mg/dL (70-100) Calcium 7.9 mg/dL L mg/dL (8.5-10.4) Total Bilirubin Conjugated Bilirubin Unconjugated Bilirubin AST ALT Alkaline Phosphatase Troponin I 0.208 ng/mL H ng/mL (0-0.034) NT-Pro-B Natriuret Pep 9370 pg/mL H pg/mL (0-450) Total Protein Albumin Medications Given: Discontinued Medications Aspirin (Aspirin) 324 mg PO EDNOW ONE Stop: 11/26/16 01:15 Last Admin: 11/26/16 01:34 Dose: 324 mg Diltiazem HCl (Cardizem 25 Mg/5 Ml Vial) 15 mg IVP EDNOW ONE Stop: 11/26/16 01:00 Last Admin: 11/26/16 02:05 Dose: 15 mg Furosemide (Lasix Injection) 40 mg IVP ONCE ONE Stop: 11/26/16 03:23 Last Admin: 11/26/16 04:27 Dose: 40 mg Sodium Chloride (Ns) 500 mls @ 3,000 mls/hr IV ONCE ONE Stop: 11/26/16 02:03 Last Admin: 11/26/16 02:00 Dose: 500 mls Departure - Departure Disposition: [facility] Inpatient Acute Clinical Impression: Atrial fibrillation with RVR, Hyponatremia, Elevated troponin CHF exacerbation Qualifiers: Congestive heart failure type: unspecified congestive heart failure type Qualified Code(s): I50.9 - Heart failure, unspecified Volume overload Qualifiers: Hypervolemia type: other Qualified Code(s): E87.79 - Other fluid overload Condition: Fair
[2016-11-26] MEDS ORDERED: IOPAMIDOL (ISOVUE 370) 100 ML BTL IV ONE (01:31)
[2016-11-26 01:38] LABS: ALBUMIN 3.1 g/dL (3.5-5.0); BILIRUBIN,TOTAL 0.8 mg/dL (0.1-1.4); BILIRUBIN-CONJUGATED 0.5 mg/dL (0.0-0.5); BILIRUBIN-UNCONJUGATED 0.3 mg/dL (0.0-1.1); TOTAL PROTEIN 5.4 g/dL (6.3-8.2)
[2016-11-26] MEDS ORDERED: NS 500 ML IV ONE (01:54)
[2016-11-26] MEDS ORDERED: FUROSEMIDE 40 MG/4 ML VIAL IVP ONE (03:22)
[2016-11-26] MEDS ORDERED: ONDANSETRON 4 MG/2 ML VIAL IVP PRN (03:24)
[2016-11-26] MEDS ORDERED: DILTIAZEM 125 MG in D5W 125 ML IV SCH (03:30)
--- NOTE | 2016-11-26 03:52 | CPEKG ---
Heart Rate: 136 RR Interval: 441 QRSD Interval: 72 QT Interval: 316 QTC Interval: 476 QRS [place]: 45 T Wave [place]: -14 EKG Severity - ABNORMAL ECG - EKG Impression: ATRIAL FIBRILLATION EKG Impression: MINIMAL ST ELEVATION IN INFEROLATERAL LEADS Electronically Signed By: Ramirez Hussein 26-Nov-2016 09:01:34
--- NOTE | 2016-11-26 04:03 | GHP ---
[f rep st] HISTORY AND PHYSICAL DATE OF ADMISSION: 11/26/2016 The patient is a pleasant 76-year-old female with minimal past medical history, recently had a lumbar spine surgery with Dr. Zoe Pearce. She was discharged to a SNF in [place]. She returns today with a constellation of symptoms including malaise. She had some chest pressure yesterday, and they checked some labs today, which were markedly abnormal, and they referred her to the emergency department. She did note she road the exercise bike for 20 minutes today and felt well without an increase in chest pain with chest pressure. She has had some generalized weakness, confusion. Family members attributed to pain medicines, but this is not present during the hospitalization. She was also receiving some muscle relaxants and it is not clear from her paperwork, which p.r.n. she did or did not receive. She also has a little bit of shortness of breath. She has not had palpitations. She has no prior cardiac history. It sounds like she has no previous anginal symptoms, is an active woman. No fever, chills, sputum, urgency, frequency, dysuria. REVIEW OF SYSTEMS: Complete 10-point review of systems conducted, negative except as noted in the HPI. PAST MEDICAL HISTORY: Orthopedic surgeries, laminectomy. SOCIAL HISTORY: No tobacco. Minimal alcohol. She and her her avid fly fisherman. They are both present at the bedside. FAMILY HISTORY: Son is healthy, present at the bedside. ALLERGIES: Sulfa, acetaminophen, hydrocodone, Percocet, lactose intolerant. MEDICATIONS: At home appear to be senna, ondansetron, omeprazole, methocarbamol , hydromorphone, gabapentin, vitamin D3, and PreserVision. She is also taking tramadol. PHYSICAL EXAM: VITAL SIGNS: Presenting vitals: Temp 36.7, blood pressure 108/ 73, pulse 137, breathing 18 times a minute, 94% on 3 L. She has had some blood pressures that have been low in the 80s, but they are not documented. She has been asymptomatic throughout this time. GENERAL: No acute distress, lying flat. HEENT: Sclerae anicteric. Oropharynx clear. Mucous membranes are moist. NECK: Supple. There is elevated JVD, but she is lying pretty flat like 30 degrees. LUNGS: Clear to auscultation anterolaterally. HEART: S1, S2. Irregularly irregular. Radial pulse is robust. ABDOMEN: Soft, nontender , nondistended. LOWER EXTREMITIES: Without edema. Calves nontender. SKIN: Without rash. Per report, there is no drainage from her wound. EKG interpreted by me shows atrial fibrillation at 1:47 with normal axis and intervals. There is a possibility of a 0.[address] elevation in leads II, III and F, although it is inconsistent to say. CTA of the chest reported as no pulmonary embolism. Chest x-ray interpreted by me shows possible atelectasis. LABORATORY DATA: White count 10.8, hematocrit 24.6, discharge hematocrit was 26 , preop was 43. D-dimer is elevated at 6.7, sodium 125, potassium 4.8, chloride 90, bicarb 25, BUN 36, creatinine 1.2, glucose 143, calcium 7.9. AST and ALT of 690 and 762. Troponin is 0.208, BNP is 9370, albumin is 3.1. Discussed the case with Dr. Kyung Escobedo. ASSESSMENT AND PLAN: This is a 76-year-old female with recent spine surgery who presents with atrial fibrillation, elevated troponin, hyponatremia, and elevated LFTs. 1. Atrial fibrillation. This is rapid, warrants rate control with diltiazem. It is unclear this is secondary or the primary driving cause. 2. Elevated troponin. In the setting of an abnormal EKG is concerning for possible ischemic event especially in light of her chest pain yesterday. The patient looks well, does not currently have chest pain. Road an exercise bike for 20 minutes today so it is hard to suspect that the patient is having an ST elevation myocardial infarction at this moment. For the time being, I will rapid cycle her troponin and repeat her EKG for further followup. I think I can hold off on heparinization at this time given the risk of surgical bleeding. 3. Acute heart failure. The patient has an elevated BNP, elevated jugular venous distention, elevated creatinine. This could also explain her elevated LFTs. Tamponade can look like this, but she has no reason for it and she does not have cardiomegaly on chest x-ray. For the time being, I will diurese her and follow her response. I repeated a BMP in the morning, an echocardiogram is ordered. 4. Prophylaxis. Pharmacologic prophylaxis indicated. 5. Hyponatremia. This is secondary to her current process, and we will repeat it in the morning. She does not appear to be having symptoms from it. 6. Acute kidney injury. I think she is in an effective prerenal state. I will diurese and follow her response. 7. Elevated LFTs. I have sent an acute hepatitis panel. She has not been getting large amounts of Tylenol per history and I suspect this is due to congestion, although will await the results of these studies. 8. Disposition. Inpatient status. 9. Code full. /[id number]/MODL MTDD
[2016-11-26 07:40] LABS: % IMMATURE GRANULYOCYTES 1.2 % (0.0-1.1); ABSOLUTE IMMATURE GRANULOCYTES 0.13 10^3/uL (0.00-0.10); ABSOLUTE NRBC COUNT 0.05 10^3/uL (0-0.01); ADD DIFF? NO; ADD MORPH? NO; ADD SCAN? NO; ATYPICAL LYMPHOCYTE FLAG 0 (0-99); FRAGMENT RBC FLAG 0 (0-99); HEMATOCRIT 23.7 % (38.0-47.0); HEMOGLOBIN 7.9 g/dL (12.6-16.3); LEFT SHIFT FLG 10 (0-99); LIPEMIA HEMOLYSIS FLAG 80 (0-99); MEAN CELL HEMOGLOBIN 31.5 pg (27.9-34.1); MEAN CELL HEMOGLOBIN CONCENTR. 33.3 g/dL (32.4-36.7); MEAN CELL VOLUME 94.4 fL (81.5-99.8); MEAN PLATELET VOLUME 10.9 fL (8.7-11.7); NRBC-AUTO% 0.5 % (0.0-0.2); PLATELET CLUMPS FLAG 0 (0-99); PLATELET COUNT 234 10^3/uL (150-400); RED BLOOD CELL COUNT 2.51 10^6/uL (4.18-5.33); RED CELL DISTRIBUTION WIDTH 12.3 % (11.5-15.2)
[2016-11-26 07:49] LABS: INR 1.33 (0.83-1.16); PROTIME(PATIENT) 16.5 SEC (12.0-15.0)
[2016-11-26 07:56] LABS: COLOR PALE YELLOW; LEUKOCYTE ESTERASE,URINE NEGATIVE (NEGATIVE); NITRITE,URINE NEGATIVE (NEGATIVE)
[2016-11-26 08:04] LABS: ALANINE AMINOTRANSFERASE 714 IU/L (9-52); ALBUMIN 2.9 g/dL (3.5-5.0); ALKALINE PHOSPHATASE 109 IU/L (38-126); ANION GAP 11 mEq/L (8-16); ASPARTATE AMINOTRANSFERASE 568 IU/L (14-46); BILIRUBIN,TOTAL 0.8 mg/dL (0.1-1.4); CALCIUM 7.4 mg/dL (8.5-10.4); CARBON DIOXIDE 25 mEq/l (22-31); CHLORIDE 95 mEq/L (97-110); CREATININE 0.9 mg/dL (0.6-1.0); GLOMERULAR FILTRATION RATE > 60; GLUCOSE 121 mg/dL (70-100); POTASSIUM 4.1 mEq/L (3.5-5.2); SODIUM 131 mEq/L (134-144); TOTAL PROTEIN 5.4 g/dL (6.3-8.2)
[2016-11-26 08:15] LABS: TROPONIN I 0.128 ng/mL (0-0.034)
[2016-11-26] MEDS ORDERED: ENOXAPARIN 40 MG/0.4 ML SYR SC SCH (09:00)
[2016-11-26] MEDS ORDERED: DIGOXIN 500 MCG/2 ML AMP IVP ONE ×2 (09:56→13:11)
--- NOTE | 2016-11-26 10:15 | ECHO ---
[id number] + + [address] : : [place] [address] : : [phone] + + Adult Echocardiographic Report + ----+ :Name: JESUS NELSON Adam Date: 11/26/2016 08:33 AM : : Hospital Admission Number: [id number] Location: 210: :: 1940 Gender: Female Height: 61 in : :Age: 76 yrs Race: WH Weight: 120 lb : :Reason For Study: New atrial fibrillation : : BSA: 1.5 meters2 : :History: Post op back : + ----+ MMode/2D Measurements \T\ Calculations IVSd: 0.67 cm LVIDd: 3.9 cm FS: 42.6 % Ao root diam: LVPWd: 0.83 cm LVIDs: 2.3 cm EDV(Teich): 3.0 cm 67.3 ml LA dimension: ESV(Teich): 3.5 cm 17.3 ml EF(Teich): 74.3 % LVLd ap4: 6.3 cm SV(MOD-sp4): EDV(MOD-sp4): 20.0 ml 29.0 ml LVLs ap4: 5.1 cm ESV(MOD-sp4): 9.0 ml EF(MOD-sp4): 69.0 % Normal Measurement Values: + + :LVIDd (3.5-5.7cm) IVSd (0.6-1.1cm) LVPWd (0.6-1.1cm) Aortic Root (2.0-3.7cm)Left Atrium (1.5-4.0cm): :LV Vol(d) (76-115ml) LV Vol(s) (29-48ml) Ejec Fraction (50-65%)PV Sed[place] (0.6- 1.2m/s) TV Sed[place] (0.4-1.0m/s) : :MV E Sed[place] (0.8-1.0m/s)MV A [place] (0.3-1.0m/s)LVOT Sed[place] (0.7-1.2m/s) Asc Ao Sedrick ( 0.9-1.8m/s) : + + Doppler Measurements \T\ Calculations MV E max sedrick: 91.8 cm/sec Ao mean P.3 mmHg TR max sedrick: 248.4 cm/sec Ao V2 mean: 69.9 cm/sec TR max P.7 mmHg Ao V2 VTI: 16.0 cm RAP systole: 10.0 mmHg RVSP(TR): 34.7 mmHg Left Ventricle The left ventricle is normal in size. There is normal left ventricular wall thickness. The left ventricle is hyperdynamic. Ejection Fraction = 70-75%. No regional wall motion abnormalities noted. Right Ventricle The right ventricle is mildly dilated. The right ventricular systolic function is moderately reduced. Atria The left atrium is mildly dilated. The right atrium is mildly dilated. The interatrial septum is intact with no evidence for an atrial septal defect. Mitral Valve The mitral valve is normal in structure and function. There is no evidence of mitral valve prolapse. There is no mitral valve stenosis. There is mild mitral regurgitation. Tricuspid Valve Normal tricuspid valve. There is moderate tricuspid regurgitation. Right ventricular systolic pressure is 35mmHg. Aortic Valve The aortic valve is trileaflet. The aortic valve opens well. There is no aortic stenosis. There is no aortic insufficiency. Pulmonic Valve The pulmonic valve is normal in structure and function. There is no pulmonic valvular regurgitation. Great Vessels The aortic root is normal size. Pericardium/Pleural There is no pericardial effusion. There is a fat pad seen. Left pleural effusion. Conclusion A complete two-dimensional transthoracic echocardiogram was performed (2D, M-mode, Doppler and color flow Doppler). The left ventricle is hyperdynamic. Ejection Fraction = 70-75%. The right ventricle is mildly dilated. The left atrium is mildly dilated. There is mild mitral regurgitation. There is moderate tricuspid regurgitation. There is a fat pad seen. Left pleural effusion. Right ventricular systolic pressure is 35mmHg. The right atrium is mildly dilated. Final Reading Physician: Abner Figueroa electronically signed on 11/26/2016 10:14 AM Ordering Physician: Chintan Fulton Performed By: Sabrina Jara [facility]
[2016-11-26] MEDS: SENNOSIDES/DOCUSATE SODIUM TAB PO PRN (10:30)
--- NOTE | 2016-11-26 10:53 | GCON ---
[f rep st] CONSULTATION CARDIOLOGY CONSULTATION DATE OF CONSULTATION: 11/26/2016 REFERRING PHYSICIAN: Chintan Fulton MD REASON FOR CONSULTATION: New onset atrial fibrillation with rapid ventricular response. HISTORY OF PRESENT ILLNESS: The patient is a pleasant 76-year-old female, with a past medical history of GERD and osteoarthritis and multiple orthopedic surgeries, who underwent surgery last Friday with Dr. Zoe Pearce for back pain. She tolerated the procedure well, and was discharged to a custodial facility in [place]. Yesterday, she began feeling some substernal chest pressure and feeling weak and fatigued, prompting vital signs and lab work to be performed at custodial [facility]. Lab work was abnormal, prompting her return to [facility] via the emergency department. She was found to be in atrial fibrillation with rapid ventricular response. This patient has no previous history of atrial fibrillation. She has no history of hypertension, hyperlipidemia, or diabetes. She has no history of obstructive sleep apnea, although her and her son feel that she does snore and has noticed apnea while visiting with her at the custodial facility. The patient was started on diltiazem drip for rate control of atrial fibrillation, was initially found to be in the 130s. Diltiazem has been a limited success secondary to hypotension, with blood pressure of 80/60 on 5 mg/ hour of diltiazem. Diltiazem has been subsequently discontinued. She remains in atrial fibrillation with rapid ventricular response in the 130s. She did undergo a complete 2D echocardiogram this morning. Preliminary findings demonstrate hyperdynamic left ventricular function with LVEF of approximately 75%. No evidence of wall motion abnormalities. Currently at the time of my exam, she is resting comfortably. She denies complaints of dizziness, lightheadedness, near syncope, or syncope. She has no complaints of chest pain, chest pressure. She has no complaints of PND, orthopnea, or lower extremity edema. During her admission she was found to have an elevated D-dimer. CT of the chest was negative for pulmonary emboli. Chest x-ray demonstrated possible bilateral atelectasis. ECG done at time of admission showed atrial fibrillation with rapid ventricular response and less than 0.[address] elevation in leads II, III, aVF. These findings have been unchanged. Her troponin was mildly elevated, and is trending down this morning. PAST MEDICAL HISTORY: 1. GERD. 2. Osteoarthritis. 3. Multiple surgeries including. a. Bilateral hip replacement. b. Bilateral knee replacement. c. Spinal meningioma resection in 1985 followed by repeat resection 4 years later in 1989. d. Status post appendectomy. e. Status post bilateral carpal tunnel surgery. SOCIAL HISTORY: She is a lifelong nonsmoker. She rarely drinks alcohol. She lives with her . FAMILY HISTORY: Noncontributory. ALLERGIES TO MEDICATIONS: Sulfa, acetaminophen, hydrocodone, Percocet, lactose intolerant. MEDICATIONS ON ADMISSION: Include senna, ondansetron, omeprazole, methocarbamol , hydromorphone, gabapentin, vitamin D3, and PreserVision. She is also taking tramadol p.r.n. Her family reports that narcotics and tramadol have made her confused. PHYSICAL EXAMINATION: VITAL SIGNS: Blood pressure 80/65, heart rate of 134 in atrial fibrillation, respiratory rate of 20, oxygen saturation 96% on 2 L via nasal cannula. GENERAL: She is awake, alert, oriented, appropriate, in no apparent distress. NECK: There is no evidence of JVP or carotid bruits. LUNGS : Clear to auscultation bilaterally. CARDIAC: S1, S2. Irregularly irregular with rapid ventricular response. No murmurs, rubs, or gallops. ABDOMEN: Soft , nontender, nondistended. No pulsatile mass or abdominal bruit. She has no evidence of cyanosis, clubbing, or edema. LAB RESULTS: White blood cell count of 10.5, hemoglobin 7.9, hematocrit 23.7, platelet count 234. INR 1.33. Sodium 131, potassium 4.1, chloride 95, bicarb 25, BUN 33, creatinine 0.9, calcium 7.4, AST 568, ALT 714. These values are trending down slightly from yesterday afternoon. Troponin initially 0.208, trending down to 0.128. N-terminal proBNP 9220. Albumin 2.9. TSH 2.070. UA is negative. CTA negative for pulmonary emboli. Chest x-ray, mild basilar atelectasis. Preliminary report echocardiogram demonstrates hyperdynamic left ventricular function with LVEF of 75%. IMPRESSION: The patient is a pleasant 76-year-old female with new onset of atrial fibrillation with rapid ventricular response in the setting of recent lumbar spinal surgery, with Dr. Pearce, on Sunday, November 20, 2016. Her surgery was unremarkable, and she was discharged to a custodial facility. She had some chest discomfort yesterday, and prompted her return to [facility]. She has been in rapid atrial fibrillation with rates in the 130s, hypotensive with diltiazem drip with systolic blood pressure currently 80/65. She is currently without chest pain. ECG demonstrates subtle ST elevation in the inferior leads, with troponin trending down, and no known history of coronary artery disease. Preliminary echo demonstrates normal wall motion with left ventricular ejection fraction of 75%. 1. Atrial fibrillation with rapid ventricular response. 2. Mildly elevated troponin trending down. 3. Anemia with hemoglobin of 7.9 and hematocrit of 23. 4. Elevated BNP suggestive of heart failure, most likely related to atrial fibrillation with rapid ventricular response. 5. Elevated LFTs. Hepatitis panel pending. Right upper quadrant ultrasound demonstrates edematous gallbladder. PLAN: 1. Discontinue diltiazem drip secondary to hypotension. 2. Recommend initiating digoxin for rate control. 3. No indication for left heart catheterization at this time. 4. [id number] score of 3, HAS-BLED score of 2. Would recommend anticoagulation with novel anticoagulant. I have discussed this with Dr. Pearce, who did not see contraindication to anticoagulation at this time. 5. We will continue to follow along with her care. 6. 45 min spent coordinating patient care /[id number]/MODL CYNDI
[2016-11-26] MEDS: traMADol 50 MG TAB PO PRN ×2 (12:06→18:42)
[2016-11-26] MEDS: ONDANSETRON DISINTEGRATING 4 MG TAB PO PRN (12:24)
--- NOTE | 2016-11-26 13:25 | HOSPPROG ---
Hospitalist Progress Note Assessment/Plan: 76-year-old with recent back surgery comes in with chest pain shortness of breath and found to be in rapid AFib. She did have a mild bump in her troponin. I did review the case in detail with Cardiology. # new AFib with rapid ventricular response. Not tolerate IV diltiazem due to hypotension. Currently without chest pain, she is quite anemic and that may be exacerbating her symptoms * Give additional dose of digoxin * Transfuse * Reviewed echo with Dr. paz * Risk stratification per Cardiology * If cannot control rate with digoxin could consider cardioversion. * Will anticoagulate with Pradaxa # recent lumbar fusion by Dr. Pearce, she is aware patient is admitted. # anemia, stable since surgery however given her new a atrial fib and chest pain with elevated troponins will transfuse Subjective: Patient new to [place], chart reviewed and reviewed with Dr. paz. No concerns at this point she does not have chest pain does not feel significant palpitations. Is not very hungry but I am encouraging her to eat more. Objective: Vital Signs Temp Pulse Resp BP Pulse Ox 36.8 C 130 H 20 96/61 L 97 11/26/16 11:25 11/26/16 13:01 11/26/16 11:25 11/26/16 13:01 11/26/16 11:25 Laboratory Results 11/26/16 07:28 11/26/16 07:28 11/25/16 11/26/16 11/27/16 05:59 05:59 05:59 Intake Total 510 7 Output Total 0 400 Balance 510 -393 PT 16.5 SEC (12.0-15.0) H 11/26/16 07:28 INR 1.33 (0.83-1.16) H 11/26/16 07:28 - Physical Exam Constitutional: appears nourished, uncomfortable Eyes: PERRL, anicteric sclera, EOMI Ears, Nose, Mouth, Throat: moist mucous membranes, hearing normal, ears appear normal Cardiovascular: irregularly irregular, tachycardia, No edema Respiratory: no respiratory distress, no rales or rhonchi, clear to auscultation Gastrointestinal: normoactive bowel sounds, soft, non-tender abdomen Skin: warm, No normal color (Pale) Musculoskeletal: no joint effusions Neurologic: AAOx3 Psychiatric: interacting appropriately, not anxious, not encephalopathic ICD10 Worksheet Patient Problems: Problems Problem Status Onset Primary osteoarthritis of right hip Acute CHF exacerbation Acute Atrial fibrillation with RVR Acute Hyponatremia Acute Volume overload Acute Elevated troponin Acute
--- NOTE | 2016-11-26 13:28 | GCON ---
[f rep st] CONSULTATION BRIEF COURTESY VISIT DISCUSSION: The patient is a 76-year-old female who underwent a lumbar fusion surgery this past homer hurt with Dr. Zoe Pearce. She tolerated the procedure well and was eventually discharged. She came back into the hospital and is currently in room 210 in the cardiac care unit with new-onset atrial f ibrillation. I did speak with her, as well as her family who is present. Her incision looks clean, dry, and intact. Steri-Strips are still in place. Her surgery was this last Friday, so 6 days ago. I did not remove any of the Steri-Strips. There are no signs of infection. No redness, eryth leroy, or discharge. No dehiscence noted. She states she feels better with regard to her back and le g pain. As far as from a cardiac standpoint, she can take and have any procedure as deemed necessar y by the security tech. It is okay for her cath as well as anticoagulation. We talked about risk fa ctors and what to watch out for. The patient and family understood and agreed. We talked about wor sening symptoms, new pain, weakness, numbness, tingling, loss of bowel or bladder control, problems with gait or balance. The patient understands and agrees, is appreciative of our time together. We will follow up accordingly. All questions and concerns were answered. /[id number]/MODL
[2016-11-26] MEDS: GABAPENTIN 400 MG CAP PO SCH ×2 (16:09→21:28)
[2016-11-26] MEDS: GABAPENTIN 100 MG CAP PO SCH ×2 (16:09→21:28)
[2016-11-26] MEDS: DABIGATRAN ETEXILATE MESYL 150 MG CAP PO SCH (21:28)
[2016-11-26] MEDS: PRESERVISION AREDS2 FORMULA EYE VIT 1 EACH PO SCH (21:28)
[2016-11-27] MEDS: traMADol 50 MG TAB PO PRN ×3 (04:46→20:44)
[2016-11-27 05:34] LABS: HEMATOCRIT 27.9 % (38.0-47.0); HEMOGLOBIN 9.3 g/dL (12.6-16.3); MEAN CELL HEMOGLOBIN 30.5 pg (27.9-34.1); MEAN CELL HEMOGLOBIN CONCENTR. 33.3 g/dL (32.4-36.7); MEAN CELL VOLUME 91.5 fL (81.5-99.8); RED BLOOD CELL COUNT 3.05 10^6/uL (4.18-5.33); RED CELL DISTRIBUTION WIDTH 14.1 % (11.5-15.2)
[2016-11-27 05:50] LABS: ALANINE AMINOTRANSFERASE 569 IU/L (9-52); ALBUMIN 2.7 g/dL (3.5-5.0); ALKALINE PHOSPHATASE 133 IU/L (38-126); ANION GAP 10 mEq/L (8-16); ASPARTATE AMINOTRANSFERASE 326 IU/L (14-46); BILIRUBIN,TOTAL 0.8 mg/dL (0.1-1.4); CALCIUM 7.1 mg/dL (8.5-10.4); CARBON DIOXIDE 26 mEq/l (22-31); CHLORIDE 96 mEq/L (97-110); CREATININE 0.6 mg/dL (0.6-1.0); GLOMERULAR FILTRATION RATE > 60; GLUCOSE 108 mg/dL (70-100); SODIUM 132 mEq/L (134-144)
[2016-11-27] MEDS: DABIGATRAN ETEXILATE MESYL 150 MG CAP PO SCH ×2 (08:19→20:43)
[2016-11-27] MEDS: CHOLECALCIFEROL VIT D3 1,000 UNITS TAB PO SCH (08:20)
[2016-11-27] MEDS: PANTOPRAZOLE SODIUM 40 MG TAB PO SCH (08:20)
[2016-11-27] MEDS: GABAPENTIN 100 MG CAP PO SCH ×3 (08:20→20:43)
[2016-11-27] MEDS: PRESERVISION AREDS2 FORMULA EYE VIT 1 EACH PO SCH ×2 (08:20→20:43)
[2016-11-27] MEDS: GABAPENTIN 400 MG CAP PO SCH ×3 (08:21→20:44)
[2016-11-27] MEDS ORDERED: NON-FORMULARY NEW DRUG (Omeprazole [Prilosec 20 Mg] 20 MG) PO SCH (09:00)
--- NOTE | 2016-11-27 10:34 | HOSPPROG ---
Hospitalist Progress Note Assessment/Plan: 76-year-old with recent back surgery comes in with chest pain shortness of breath and found to be in rapid AFib. She did have a mild bump in her troponin. I did review the case in detail with Cardiology. # new AFib with rapid ventricular response. Not tolerate IV diltiazem due to hypotension. * s/p Digoxin. * TTE c/w preserved LVED. No wall abnormalities * Would consider Cardioversion * Cont anticoagulation with Pradaxa # Hyponatremia: Improving. # Transaminitis. Likely due to poor perfusion. Improving. # DEBRA: resolved # recent lumbar fusion by Dr. Pearce, no interventions needed at this time # anemia, s/p transfusion on 11/26. Stable # Pain Mgmt: cont tramadol Plan: Await Cards reccs regarding possible Cardioversion. She is currently hemodynamically stable. Will hold off on additional Digoxin at this time. Her BP appears to be recovering and she may tolerate low dose BB. Subjective: feels better. Still in Afib. Denies SOB, CP, palpitations, Leg edema. First encounter with this patient Objective: Vital Signs Temp Pulse Resp BP Pulse Ox 36.7 C 121 H 17 109/71 95 11/27/16 07:41 11/27/16 07:41 11/27/16 07:41 11/27/16 07:41 11/27/16 07:41 Laboratory Results 11/27/16 04:24 11/27/16 04:24 11/26/16 11/27/16 11/28/16 05:59 05:59 05:59 Intake Total 510 357 Output Total 0 1150 Balance 510 -793 PT 16.5 SEC (12.0-15.0) H 11/26/16 07:28 INR 1.33 (0.83-1.16) H 11/26/16 07:28 - Physical Exam Constitutional: no apparent distress, appears nourished, not in pain Eyes: PERRL, anicteric sclera, EOMI Ears, Nose, Mouth, Throat: moist mucous membranes, hearing normal, ears appear normal, no oral mucosal ulcers Cardiovascular: irregularly irregular, No JVD, No edema Respiratory: no respiratory distress, no rales or rhonchi, clear to auscultation , No respiratory distress Gastrointestinal: normoactive bowel sounds, soft, non-tender abdomen Genitourinary: no bladder fullness Skin: warm, normal color Neurologic: AAOx3 Psychiatric: interacting appropriately, not anxious ICD10 Worksheet Patient Problems: Problems Problem Status Onset Atrial fibrillation with RVR Acute CHF exacerbation Acute Elevated troponin Acute Hyponatremia Acute Volume overload Acute Primary osteoarthritis of right hip Acute
[2016-11-27] MEDS ORDERED: BENZOCAINE UNIT DOSE SPRAY HURRICAINE MM ONE (11:20)
[2016-11-27] MEDS ORDERED: fentaNYL 100 MCG/2 ML INJ IVP ONE (11:20)
[2016-11-27] MEDS ORDERED: NS 1,000 ML IV ONE (11:20)
[2016-11-27] MEDS ORDERED: MIDAZOLAM 2 MG/2 ML VIAL IVP ONE (11:20)
--- NOTE | 2016-11-27 12:32 | CPEKG ---
Heart Rate: 109 RR Interval: 550 QRSD Interval: 80 QT Interval: 336 QTC Interval: 453 QRS Delta: 50 T Wave Delta: -45 EKG Severity - ABNORMAL ECG - EKG Impression: ATRIAL FIBRILLATION, V-RATE 79-158 EKG Impression: NONSPECIFIC REPOL ABNORMALITY, DIFFUSE LEADS Electronically Signed By: Kyung Escobedo 27-Nov-2016 15:50:25
--- NOTE | 2016-11-27 13:11 | PDCARPN ---
Cardiology Progress Note Chief Complaint: Carla remains in afib with RVR this morning. She continues to feel fatigued and lethargic. BP has improved with transfusion. Pt underwent ARNOL/DCCV this AM. Pt returned to NSR breifly with shock of 150J, synchronized biphasic shock but billyley returned to atrial fibrillation with rVR in the 120's. Will plan for oral amiodarone 400 mg bid. Assessment/Plan: Assessment: 1. Atrial Fibrillation 2. Anemia Plan: 1. Start Amiodarone 400 mg bid 2. continue Pradaxa 150 mg bid 3. No digoxin. 4. Will follow 11/27/16 13:11 Reviewed/Discussed With: family, hospitalist Objective: Vital Signs (8 Hrs) Temp Pulse Resp BP Pulse Ox 11/27/16 07:41 36.7 C 121 H 17 109/71 95 Intake/Output (24 Hrs) 11/26/16 11/27/16 11/28/16 05:59 05:59 05:59 Intake Total 510 357 Output Total 0 1150 Balance 510 -793 Intake: IV Infused (ml) 510 7 Diltiazem 125 mg In D5w 10 7 125 ml @ Per Protocol IV CONT PELON Rx#:[id number] Packed Red Blood Cells ( 350 ml) Output: Urine (ml) 0 1150 Toilet 1150 Other: Weight 61.9 kg 59.7 kg Number of Voids Toilet 2 1 Number of Stools Toilet 1 Result Diagrams: 11/27/16 04:24 11/27/16 04:24 Cardiac Labs: Cardiac Lab Results (72 Hrs) 11/26/16 11/26/16 07:28 04:15 Troponin I 0.128 H 0.150 H - Physical Exam Constitutional: WDWN Neurologic: AAOx3, CN II-XII grossly intact Psychiatric: cooperative, interactive ICD10 Worksheet Patient Problems: Problems Problem Status Onset Atrial fibrillation with RVR Acute CHF exacerbation Acute Elevated troponin Acute Hyponatremia Acute Volume overload Acute Primary osteoarthritis of right hip Acute
[2016-11-27] MEDS: AMIODARONE HCL 200 MG TAB PO SCH ×2 (13:56→20:43)
--- NOTE | 2016-11-27 14:02 | CPR ---
[f rep st] NONINVASIVE CARDIAC PROCEDURE REPORT DATE OF PROCEDURE: 11/27/2016 PROCEDURE PERFORMED: Transesophageal echocardiogram guided cardioversion. INDICATION FOR PROCEDURE: Atrial fibrillation with rapid ventricular response coupled with symptoms of fatigue and lethargy. The patient is a pleasant 76-year-old female, who has developed new onset of atrial fibrillation wit h rapid ventricular response approximately 72 hours ago while in a rehab facility recovering from sp inal surgery with Dr. Pearce that occurred last Sunday, November 20, 2016. She was also found to b e anemic and was transfused a single unit of packed red blood cells, which improved blood pressure, however, she has remained in atrial fibrillation with rapid ventricular response. IV dose of digoxi n yesterday x2 had no significant impact on improved rate control. The patient this morning remains in atrial fibrillation with a rapid ventricular response with rates in the mid 130s with complaints of lethargy and fatigue. In the setting of symptomatic atrial fibr illation with rapid ventricular response, decision was made to pursue ARNOL-guided cardioversion. Of note, she had been started on anticoagulation with Pradaxa 150 mg p.o. b.i.d. She did receive 2 dos es yesterday and a dose this morning. PROCEDURE: After informed consent was obtained, the patient was brought to the CV ICU. With the as sistance of Anesthesia, she was sedated with propofol. Prior to the administration of propofol, a t maurice-out was called. A bite block was put in place. Once appropriate level of sedation was achieved , ARNOL probe was passed without incident. Images were taken in multiple views of the left atrial mona endage and the left atrium, demonstrating no evidence of left atrial or left atrial appendage thromb us. ARNOL probe was removed. Attempts at cardioversion were performed 3 times. She was shocked with a synchronized shock of 150 joules of biphasic energy 3 times. Each time, she converted to sinus rhythm briefly and returned to atrial fibrillation with rates ranging in the mid 120s. She woke from procedure without complicati ons. There were no further attempts at cardioversion. The results of the procedure were discussed in detail with the patient as well as her family. We will plan to initiate rhythm control with a short course of amiodarone and continued anticoagulat ion with Pradaxa. PLAN: 1. Initiate amiodarone 400 mg p.o. b.i.d. 2. Continue Pradaxa 150 mg p.o. b.i.d. 3. We will continue to follow along with her care. /[id number]/MODL
[2016-11-27] MEDS: ONDANSETRON DISINTEGRATING 4 MG TAB PO PRN ×2 (14:08→20:44)
--- NOTE | 2016-11-27 14:36 | ECHO ---
[id number] + + [address] : : [place] [address] : : [phone] + + Adult Echocardiographic Report + ----+ :Name: JESUS NELSON Adam Date: 11/27/2016 11:14 AM : : Hospital Admission Number: [id number] Location: [facility]: :: 1940 Gender: Female : :Age: 76 yrs Race: WH : :Reason For Study: Atrial Fibrillation : + ----+ Left Ventricle Ejection Fraction = 55-60%%. Atria No thrombus is detected in the left atrial appendage. The interatrial septum is intact with no evidence for an atrial septal defect. Mitral Valve The mitral valve is normal in structure and function. There is mild mitral regurgitation. Tricuspid Valve The tricuspid valve is normal in structure and function. There is moderate tricuspid regurgitation. Aortic Valve The aortic valve is trileaflet. Conclusion A complete two-dimensional transthoracic echocardiogram was performed (2D, M-mode, Doppler and color flow Doppler). Proceed with cardioversion. No thrombus is detected in the left atrial appendage. There is mild mitral regurgitation. There is moderate tricuspid regurgitation. Ejection Fraction = 55-60%%. Final Reading Physician: Abner Figueroa electronically signed on 11/27/2016 02:35 PM Ordering Physician: Chintan Fulton Performed By: Abner Figueroa
[2016-11-28 04:37] LABS: % IMMATURE GRANULYOCYTES 1.9 % (0.0-1.1); ABSOLUTE IMMATURE GRANULOCYTES 0.17 10^3/uL (0.00-0.10); ABSOLUTE NRBC COUNT 0.24 10^3/uL (0-0.01); ADD DIFF? NO; ADD MORPH? YES; ADD SCAN? NO; ATYPICAL LYMPHOCYTE FLAG 10 (0-99); FRAGMENT RBC FLAG 0 (0-99); HEMATOCRIT 27.8 % (38.0-47.0); HEMOGLOBIN 9.1 g/dL (12.6-16.3); LEFT SHIFT FLG 10 (0-99); LIPEMIA HEMOLYSIS FLAG 80 (0-99); MEAN CELL HEMOGLOBIN 31.1 pg (27.9-34.1); MEAN CELL HEMOGLOBIN CONCENTR. 32.7 g/dL (32.4-36.7); MEAN CELL VOLUME 94.9 fL (81.5-99.8); MEAN PLATELET VOLUME 10.9 fL (8.7-11.7); PLATELET CLUMPS FLAG 0 (0-99); PLATELET COUNT 259 10^3/uL (150-400); RED BLOOD CELL COUNT 2.93 10^6/uL (4.18-5.33)
[2016-11-28 04:52] LABS: ALANINE AMINOTRANSFERASE 584 IU/L (9-52); ALBUMIN 2.6 g/dL (3.5-5.0); ALKALINE PHOSPHATASE 125 IU/L (38-126); ANION GAP 8 mEq/L (8-16); ASPARTATE AMINOTRANSFERASE 344 IU/L (14-46); BILIRUBIN,TOTAL 0.5 mg/dL (0.1-1.4); CALCIUM 7.2 mg/dL (8.5-10.4); CARBON DIOXIDE 26 mEq/l (22-31); CHLORIDE 99 mEq/L (97-110); CREATININE 0.5 mg/dL (0.6-1.0); GLOMERULAR FILTRATION RATE > 60; GLUCOSE 106 mg/dL (70-100); NRBC-AUTO% 2.7 % (0.0-0.2); POTASSIUM 4.1 mEq/L (3.5-5.2); SODIUM 133 mEq/L (134-144); TOTAL PROTEIN 4.9 g/dL (6.3-8.2)
[2016-11-28] MEDS: traMADol 50 MG TAB PO PRN ×2 (04:57→16:00)
[2016-11-28] MEDS: ONDANSETRON DISINTEGRATING 4 MG TAB PO PRN (04:57)
[2016-11-28 06:04] LABS: PLATELET ESTIMATE ADEQUATE (ADEQ); POLYCHROMASIA 1+
[2016-11-28 06:05] LABS: MACROCYTES 1+
[2016-11-28] MEDS: CHOLECALCIFEROL VIT D3 1,000 UNITS TAB PO SCH (07:51)
[2016-11-28] MEDS: GABAPENTIN 100 MG CAP PO SCH ×3 (07:51→20:07)
[2016-11-28] MEDS: AMIODARONE HCL 200 MG TAB PO SCH ×2 (07:52→20:07)
[2016-11-28] MEDS: PANTOPRAZOLE SODIUM 40 MG TAB PO SCH (07:52)
[2016-11-28] MEDS: PRESERVISION AREDS2 FORMULA EYE VIT 1 EACH PO SCH ×2 (07:52→20:07)
[2016-11-28] MEDS: DABIGATRAN ETEXILATE MESYL 150 MG CAP PO SCH ×2 (07:53→20:07)
[2016-11-28] MEDS: GABAPENTIN 400 MG CAP PO SCH ×3 (07:53→20:07)
--- NOTE | 2016-11-28 08:56 | SOAPPROG ---
SOAP Progress Note Assessment/Plan: Assessment: Cardiology ([facility]) 1. Atrial fibrillation w/ rapid ventricular response refractory to 3 attempts of DC cardioversion yesterday following ARNOL negative for ELIZA thrombus. She is anticoagulated with Pradaxa 150 mg po bid. Oral amiodarone loading has been initiated with 400 mg po bid. She remains in afib this am with ventricular rates ranging from 95 to 115 bpm. Rate control has been limited by hypotension. Digoxin dc'd yesterday in favor of amio. 2. Admit with chest discomfort and mildly elevated troponin that is downtrending. Suspected 2/2 rapid rates > ischemia. 3. Anemia s/p 1 unit PRBC on 11/26. Hb/Hct remains low but stable. 4. Transaminitis. Hepatitis panel negative. 5. S/p back surgery last week. 6. New hyponatremia, stable. Plan: 1. Continue current doses of amiodarone and Pradaxa. I would refrain from starting beta blockade or digoxin again now that rates are improved. 2. No plans to repeat cardioversion prior to hospital discharge, will likely be repeated electively in the future. 3. PT/OT. 4. Discuss w/ hospitalist further evaluation of anemia and elevated LFTs before considering hospital discharge. Objective: Vital Signs Temp Pulse Resp BP Pulse Ox 36.4 C 100 16 100/65 94 11/28/16 08:00 11/28/16 08:00 11/28/16 08:00 11/28/16 08:00 11/28/16 08:00 Laboratory Results 11/28/16 04:00 11/28/16 04:00 11/27/16 11/28/16 11/29/16 05:59 05:59 05:59 Intake Total 357 120 Output Total 1150 360 Balance -793 -240 PT 16.5 SEC (12.0-15.0) H 11/26/16 07:28 INR 1.33 (0.83-1.16) H 11/26/16 07:28 ICD10 Worksheet Patient Problems: Problems Problem Status Onset Atrial fibrillation with RVR Acute CHF exacerbation Acute Elevated troponin Acute Hyponatremia Acute Volume overload Acute Primary osteoarthritis of right hip Acute
--- NOTE | 2016-11-28 13:27 | HOSPPROG ---
Hospitalist Progress Note Assessment/Plan: # a-fib with RVR - failed DCCV, but now converted to sinus - cont amiodarone for now, defer to cards - cont pradaxa # anemia - d/t L-spine surgery, s/p 1U PRBC - recheck tomorrow # elevated LFTs - suspect hepatic congestion, downtrending - recheck tomorrow, then a few days after dc # hypoNa - better # DEBRA - resolved # recent L-spine fusion # dispo - likely tomorrow; family hopes for early dc ## chart reviewed US reviewed - liver nl CTA reviewed tele reviewed - NSR Subjective: converted to sinus; feels stronger Objective: Vital Signs Temp Pulse Resp BP Pulse Ox 36.6 C 87 18 104/55 L 97 11/28/16 11:49 11/28/16 11:49 11/28/16 11:49 11/28/16 11:49 11/28/16 11:49 Laboratory Results 11/28/16 04:00 11/28/16 04:00 11/27/16 11/28/16 11/29/16 05:59 05:59 05:59 Intake Total 357 120 Output Total 1150 360 Balance -793 -240 PT 16.5 SEC (12.0-15.0) H 11/26/16 07:28 INR 1.33 (0.83-1.16) H 11/26/16 07:28 - Physical Exam Constitutional: no apparent distress, appears nourished Cardiovascular: regular rate and rhythym, no murmur, rub, or gallop Respiratory: no respiratory distress, no rales or rhonchi, clear to auscultation Gastrointestinal: normoactive bowel sounds, soft, non-tender abdomen, no palpable masses ICD10 Worksheet Patient Problems: Problems Problem Status Onset Primary osteoarthritis of right hip Acute CHF exacerbation Acute Atrial fibrillation with RVR Acute Hyponatremia Acute Volume overload Acute Elevated troponin Acute
[2016-11-29 04:47] LABS: % IMMATURE GRANULYOCYTES 2.2 % (0.0-1.1); ADD DIFF? NO; ADD MORPH? YES; ADD SCAN? NO; ATYPICAL LYMPHOCYTE FLAG 20 (0-99); FRAGMENT RBC FLAG 0 (0-99); HEMATOCRIT 29.2 % (38.0-47.0); HEMOGLOBIN 9.4 g/dL (12.6-16.3); LEFT SHIFT FLG 10 (0-99); LIPEMIA HEMOLYSIS FLAG 80 (0-99); MEAN CELL HEMOGLOBIN CONCENTR. 32.2 g/dL (32.4-36.7); MEAN CELL VOLUME 96.4 fL (81.5-99.8); MEAN PLATELET VOLUME 10.5 fL (8.7-11.7); PLATELET CLUMPS FLAG 10 (0-99); PLATELET COUNT 303 10^3/uL (150-400); RED BLOOD CELL COUNT 3.03 10^6/uL (4.18-5.33); RED CELL DISTRIBUTION WIDTH 14.2 % (11.5-15.2)
[2016-11-29] MEDS: traMADol 50 MG TAB PO PRN ×3 (04:52→15:52)
[2016-11-29] MEDS: ONDANSETRON DISINTEGRATING 4 MG TAB PO PRN ×2 (04:53→13:24)
[2016-11-29 04:54] LABS: NRBC-AUTO% 1.1 % (0.0-0.2)
[2016-11-29 05:00] LABS: ALANINE AMINOTRANSFERASE 685 IU/L (9-52); ALBUMIN 2.7 g/dL (3.5-5.0); ALKALINE PHOSPHATASE 131 IU/L (38-126); ANION GAP 8 mEq/L (8-16); ASPARTATE AMINOTRANSFERASE 398 IU/L (14-46); BILIRUBIN,TOTAL 0.5 mg/dL (0.1-1.4); CALCIUM 7.1 mg/dL (8.5-10.4); CARBON DIOXIDE 26 mEq/l (22-31); CHLORIDE 99 mEq/L (97-110); CREATININE 0.6 mg/dL (0.6-1.0); GLOMERULAR FILTRATION RATE > 60; GLUCOSE 103 mg/dL (70-100); POTASSIUM 4.5 mEq/L (3.5-5.2); SODIUM 133 mEq/L (134-144); TOTAL PROTEIN 5.1 g/dL (6.3-8.2)
[2016-11-29 05:36] LABS: MACROCYTES 1+; MICROCYTES 1+; PLATELET ESTIMATE ADEQUATE (ADEQ); POLYCHROMASIA 2+
--- NOTE | 2016-11-29 08:14 | PDCARPN ---
Cardiology Progress Note Assessment/Plan: Assessment: 1. Atrial Fibrillation now in NSR 2. Anemia 3. [id number] Plan: 1. Decrease Amiodarone 400 mg daily 2. continue Pradaxa 150 mg bid 3. OK to to DC to rehab center 4. Follow up in one week in my office, I will call to arrange 11/27/16 13:11 11/29/16 08:12 Reviewed/Discussed With: family Time Spent With Patient: 20 Objective: Vital Signs (8 Hrs) Temp Pulse Resp BP Pulse Ox 11/29/16 07:36 36.7 C 67 17 110/67 94 11/29/16 04:00 36.8 C 67 18 97/54 L 95 Intake/Output (24 Hrs) 11/28/16 11/29/16 11/30/16 05:59 05:59 05:59 Intake Total 120 300 Output Total 360 Balance -240 300 Intake: Oral (ml) 120 300 Output: Urine (ml) 360 Toilet 360 Other: Weight 60.1 kg Intake Quantity Yes Sufficient Number of Voids Toilet 2 1 Number of Stools Toilet 1 Result Diagrams: 11/29/16 04:02 11/29/16 04:02 Cardiac Labs: Cardiac Lab Results (72 Hrs) 11/26/16 07:28 Troponin I 0.128 H Telemetry: NSR ICD10 Worksheet Patient Problems: Problems Problem Status Onset Atrial fibrillation with RVR Acute CHF exacerbation Acute Elevated troponin Acute Hyponatremia Acute Volume overload Acute Primary osteoarthritis of right hip Acute
[2016-11-29] MEDS: GABAPENTIN 100 MG CAP PO SCH ×2 (08:20→15:52)
[2016-11-29] MEDS: DABIGATRAN ETEXILATE MESYL 150 MG CAP PO SCH (08:20)
[2016-11-29] MEDS: PRESERVISION AREDS2 FORMULA EYE VIT 1 EACH PO SCH (08:22)
[2016-11-29] MEDS: CHOLECALCIFEROL VIT D3 1,000 UNITS TAB PO SCH (08:22)
[2016-11-29] MEDS: GABAPENTIN 400 MG CAP PO SCH ×2 (08:22→15:52)
[2016-11-29] MEDS: AMIODARONE HCL 200 MG TAB PO SCH (08:22)
[2016-11-29] MEDS: PANTOPRAZOLE SODIUM 40 MG TAB PO SCH (08:23)
[2016-11-29] MEDS: SENNOSIDES/DOCUSATE SODIUM TAB PO PRN (08:31)
--- NOTE | 2016-11-29 08:51 | HOSPPROG ---
Hospitalist Progress Note Assessment/Plan: Patient is a 76y/o female who presented to the ER w generalized weakness and confusion. It was noted she was in afib and had an elevated troponin. reviewed her care with Dr Figueroa. # a-fib with RVR - failed DCCV, but now converted to sinus - cont amiodarone (dose reduced by cards) - cont pradaxa # anemia - d/t L-spine surgery, s/p 1U PRBC - overall stable # Transaminitis/starting to trend up initial concern was hepatic congestion hepatitis panel neg this was noted on admission/prior to starting amio/ dose decreased today by Dr Figueroa ultrasound shows a normal liver call into GI to see #hypoxemia suspect secondary to atelectasis more inspiratory effort with using IS # hypoNa - Na 133 # DEBRA - resolved # recent L-spine fusion -pain well managed w tramadol # dispo - pending/ she is fine with being dc today or tomorrow #plan: Get input from GI Subjective: Carla is overall feeling well/ has some ongoing back pain. Objective: Vital Signs Temp Pulse Resp BP Pulse Ox 36.7 C 67 17 110/67 94 11/29/16 07:36 11/29/16 07:36 11/29/16 07:36 11/29/16 07:36 11/29/16 07:36 Laboratory Results 11/29/16 04:02 11/29/16 04:02 11/28/16 11/29/16 11/30/16 05:59 05:59 05:59 Intake Total 120 300 Output Total 360 Balance -240 300 PT 16.5 SEC (12.0-15.0) H 11/26/16 07:28 INR 1.33 (0.83-1.16) H 11/26/16 07:28 - Physical Exam Constitutional: uncomfortable Eyes: PERRL Ears, Nose, Mouth, Throat: hearing normal Cardiovascular: regular rate and rhythym, No tachycardia Respiratory: no respiratory distress, reduced air movement (bases) Gastrointestinal: normoactive bowel sounds Skin: warm, No normal color (pale) Musculoskeletal: generalized weakness Neurologic: AAOx3 Psychiatric: interacting appropriately, not anxious ICD10 Worksheet Patient Problems: Problems Problem Status Onset Atrial fibrillation with RVR Acute CHF exacerbation Acute Elevated troponin Acute Hyponatremia Acute Volume overload Acute Primary osteoarthritis of right hip Acute
[2016-11-29 09:29] LABS: SPHEROCYTES 2+
[2016-11-29 12:13] VITALS: BP 102/60; PULSE 69; RESP 18; TEMP 97.9; O2SAT 95
--- NOTE | 2016-11-29 12:25 | PDIAF ---
- Diagnosis Diagnosis: afib w RVR/transamitas, anemia/ recent back surgery Code Status: Full Code - Medication Management Discharge Medications: Medications to Continue on Transfer C/E/Zn/Cu/OM3/DHA/EPA/LUT/ZEAX [Preservision Areds 2 Softgel] 1 each PO BID [Last Taken 10/22/16] Cholecalciferol Vit D3 [Vitamin D3 (*)] 1,000 units PO DAILY 03/10/14 [Last Taken 10/22/16] Omeprazole [Prilosec 20 mg] 20 mg PO DAILY 03/10/14 [Last Taken 11/25/16] Gabapentin [Neurontin 100 MG (*)] 100 mg PO TID 10/03/16 [Last Taken 11/25/16 22 :00] Gabapentin [Neurontin 400 MG (*)] 400 mg PO TID 10/03/16 [Last Taken 11/25/16 22 :00] Sennosides/Docusate Sodium [Senokot-S] 1 - 2 tab PO BID PRN 11/26/16 [Last Taken Unknown] Amiodarone HCl 400 mg PO DAILY #0 tablet 11/29/16 [Last Taken Unknown] Dabigatran Etexilate Mesyl [Pradaxa 150 MG (*)] 150 mg PO BID #0 cap 11/29/16 [ Last Taken Unknown] traMADol [Ultram 50 mg (*)] 25 - 50 mg PO Q6HRS PRN #0 tab 11/29/16 [Last Taken Unknown] Discharge Medications: Refer to the Discharge Home Medication list for PRN reason. - Orders Services needed: Physical Therapy, Occupational Therapy Diet Recommendation: no restrictions on diet Diet Texture: Regular Texture Diet Additional: acitivity per surgery. F/u w Dr Figueroa / his office will arrange. F/ u with gastroeneterology if LFT's remain elevted. - Labs/Radiology CBC Date: 12/02/16 (weekly) CMP Date: 12/02/16 (weekly) LFT Date: 12/06/16 (call results to dr Federico Duong) - Follow Up Care Current Providers and Referrals: Mayuri Arreguin MD [Primary Care Provider] - As per Instructions Abner Figueroa MD [Medical Doctor] -
--- NOTE | 2016-11-29 13:14 | GCON ---
[f rep st] CONSULTATION ASSESSMENT: The patient is a 76-year-old female who was recently admitted to the hospital on October 25 after a recent lumbar fusion surgery with new-onset atrial fibrillation and heart failure. She un derwent cardioversion and was started on amiodarone. Her liver function tests have been noted to be elevated and are overall trending down. Other abnormalities are primarily hepatocellular liver fun ction tests such as AST and ALT. Her bilirubin and alkaline phosphatase are essentially normal. I think that she most likely has congestive hepatopathy secondary to new-onset atrial fibrillation and heart failure. The differential also includes other etiologies for hepatitis. Of note, her liver tests were abnormal prior to starting amiodarone which can also cause elevation of liver function te sts. RECOMMENDATIONS: 1. Trend liver function tests. I recommend repeating liver function tests in 1 week and if they re main elevated, we will see her back in the office for consultation for workup for hepatitis. 2. I am deferring extensive workup for hepatitis at this point given her history of new-onset atria l fibrillation and rapid ventricular rate with cardioversion since I suspect that most likely her li ruddy tests are related to ischemia/congestive hepatopathy. Thank you for allowing me to participate in the care of your patient. Please do not hesitate to jessy grey with questions. CHIEF COMPLAINT: I was asked to see the patient in consultation by Bernarda Gacria for the chief co mplaint of abnormal liver function tests. HISTORY OF PRESENT ILLNESS: The patient is a 76-year-old female who was initially admitted on October 25 after recent lumbar spinal fusion with atrial fibrillation with rapid ventricular rate. Upon pre sentation, she had malaise and generalized weakness. She also reported some shortness of breath. D uring her hospital stay, she has required DC cardioversion and is currently chest pain free. She is on amiodarone and in sinus rhythm. She denies shortness of breath. She has had no fevers. She de nies any diarrhea. Initial hepatitis workup was negative. Overall, her AST and ALT are trending do wn from the 3rd, but are slightly up over the last 2 days. REVIEW OF SYSTEMS: CONSTITUTIONAL: Negative. HEENT: Negative. RESPIRATORY: Negative. CARDIOVA SCULAR: See history of present illness. Currently without chest pain and in normal sinus rhythm. GASTROINTESTINAL: See history of present illness. GENITOURINARY: Negative. REPRODUCTIVE: Negati ve. ENDOCRINE: Negative. MUSCULOSKELETAL: Negative. HEMATOLOGIC/LYMPHATIC: Negative. IMMUNOLOG IC/ALLERGIC/RHEUMATOLOGIC: Negative. SKIN: Negative. NEUROLOGIC: Negative. MENTAL STATUS: Neg ative. PAST MEDICAL/SURGICAL HISTORY: 1. Laminectomy. 2. GERD. 3. Bilateral hip replacement. 4. Bilateral knee replacement. 5. Status post appendectomy. 6. Status post bilateral carpal tunnel surgery. 7. Spinal meningioma resection in 1985 followed by repeat resection in 1989. FAMILY HISTORY: There is no family history related to the chief complaint. SOCIAL HISTORY: She does not smoke. She does not drink alcohol. She lives with her . ALLERGIES: She has allergies to the following medications: Sulfa, acetaminophen, hydrocodone, Perc ocet. She is lactose intolerant. MEDICATIONS: 1. Amiodarone. 2. Vitamin D. 3. Pradaxa. 4. Neurontin. 5. Zofran. 6. Protonix. 7. Senokot. 8. Ultram. PHYSICAL EXAMINATION: VITAL SIGNS: Blood pressure 102/60, heart rate 69, respiration rate is 18. She is saturating 95% on 1 L, temperature 96.6, GENERAL: She is awake, alert, and sitting up in be d. She is in no acute distress. HEENT: VONDA. Oral mucosa intact. CHEST: Clear to auscultation bilaterally. There was no wheezing. CARDIOVASCULAR: Regular rate and rhythm. ABDOMEN: Soft, no ntender, nondistended. No hepatosplenomegaly. MUSCULOSKELETAL: Full range of motion. SKIN: [place] , warm, well perfused. NEUROLOGIC: Grossly nonfocal. Cranial nerves 2-12 are intact, coordinated gait. LYMPH NODES: No palpable lymph nodes. PSYCHIATRIC: Oriented x3. No mood disorder. Normal affect. LABORATORY AND X-RAY DATA: AST was 690, and ALT 762 on October 25. On October 26, AST 586, ALT 714. On October 27, AST 326, ALT 569. On October 28, AST 344, ALT 584. Today, October 29, AST 398, ALT 658. Biliru bin has been normal. Alkaline phosphatase essentially normal; it is 131 today. BNP is high at 9220 . INR was 1.33 on the . Hemoglobin 9.4, hematocrit 29, platelet count 303, white count is 9. Ultrasound shows normal biliary tree and normal liver. /[id number]/MODL
--- NOTE | 2016-11-29 14:39 | GDS ---
[f rep st] DISCHARGE SUMMARY DISCHARGE DIAGNOSES: 1. Atrial fibrillation with rapid ventricular response. 2. Anemia. 3. Transaminitis. 4. Hypoxemia. 5. Hyponatremia. 6. Acute kidney injury. 7. Recent L-spine fusion. CONSULTATIONS DURING HER STAY: 1. Dr. Abner Figueroa. 2. Aditya Rubio, physician assistant to the vice president with Neurosurgery. 3. Dr. Vinny Duong with Gastroenterology. Briefly, the patient is a very nice 76-year-old woman who recently had lumbar spine surgery with Dr. Zoe Pearce. She was discharged to the longterm facility but returned to the ER with malaise. Of note, she had some chest pressure. It was noted when she came in that she was in rapid atrial fibrillation and was treated with diltiazem. She had an elevated troponin and some underlying heart failure. She was seen and evaluated by Cardiology. She had a transesophageal echocardiogram that detected no thrombus prior to a planned cardioversion. Dr. Figueroa did a trial of a cardioversion, but the patient returned to atrial fibrillation with RVR in the 120s. She was started on amiodarone and Pradaxa. She is in sinus rhythm today. During her stay, she had elevated liver enzymes. She was seen by Dr. Duong. He is recommending that she get her liver enzymes rechecked in 1 week. He suspects that her elevated liver enzymes are related to her history of new onset atrial fibrillation and are related to ischemia/congestive hepatopathy. Today, the patient is feeling very well. She will be discharged to rehab and follow up with Dr. Duong if her liver enzymes stay elevated. In addition, she will follow up with Dr. Abner Figueroa, he will contact her for followup care. HOSPITAL COURSE BY PROBLEM: 1. Atrial fibrillation with RVR. She failed cardioversion but now converted to sinus. She will be continued on amiodarone and Pradaxa. 2. Anemia, overall stable. She was given a unit of packed red blood cells. Will have her labs checked weekly. 3. Transaminitis most likely secondary to hepatic congestion. An ultrasound was performed, which showed a normal liver. Repeat liver enzymes will be checked in 1 week. If abnormal, to call Dr. Duong. 4. Hypoxemia. This is secondary to atelectasis. 5. Hyponatremia. Sodium is 133. 6. Acute kidney injury, resolved. 7. Recent lumbar spine fusion. Pain is well managed with tramadol. PENDING LABS AND TESTS: None. CONDITION AT DISCHARGE: Stable. Blood pressure is 102/60, heart rate is 69, respiratory rate is 18, O2 sats on 1 L 95%, temperature 36.6 Celsius. MEDICATIONS AT DISCHARGE: Please see the EMR. DISCHARGE INSTRUCTIONS: 1. To follow up with Dr. Abner Figueroa in 1-2 weeks. 2. If liver enzymes remain elevated, to follow up with Dr. Duong. Greater than 30 minutes discharging and coordinating her care. /[id number]/MODL MTDD
== END 2016-11-29 17:02 | DRG 309 ==
LOC: EDUNIT# → F2W 11-26 03:22
PROVIDERS: ADMIT Internal Medicine; ATTEND Family Medicine
PROC: 30233N1 Transfusion of Nonautologous Red Blood Cells into Peripheral Vein, Percutaneous Approach (ICD-10-PCS; 2016-11-26)
PROC: 5A2204Z Restoration of Cardiac Rhythm, Single (ICD-10-PCS; principal; 2016-11-27)
PROC: B246ZZ4 Ultrasonography of Right and Left Heart, Transesophageal (ICD-10-PCS; principal; 2016-11-27)
DX: I48.91 Unspecified atrial fibrillation (principal); E87.1 Hypo-osmolality and hyponatremia; D64.9 Anemia, unspecified; R09.02 Hypoxemia; N17.9 Acute kidney failure, unspecified; K21.9 Gastro-esophageal reflux disease without esophagitis; Z96.653 Presence of artificial knee joint, bilateral; Z96.643 Presence of artificial hip joint, bilateral; Z98.1 Arthrodesis status
CPT/HCPCS: 96374; 97161-GP; 97166-GO; 97535-GO; G0472; G8978-GP-CJ; G8979-GP-CI; G8987-GO-CJ; G8988-GO-CI; J1160; J1650; P9016; Q9967

== ENCOUNTER → 2017-07-15 | Outpatient (CLI) | payer OTHER | LOC: BMCIMAGING 08:33 | PROVIDERS: ATTEND Internal Medicine | DX: Z12.31 Encounter for screening mammogram for malignant neoplasm of breast (principal) | CPT/HCPCS: G0202 ==

== ENCOUNTER 2017-10-27 05:34 | Observation (INO) | payer OTHER ==
[2017-10-27] MEDS ORDERED: NS 1,000 ML IV ONE (05:54)
--- NOTE | 2017-10-27 05:54 | EDPHY ---
H & P Stated Complaint: c/o intermittent upper L arm numbness and numbness/pain x 1 month, Time Seen by Provider: 10/27/17 05:40 HPI/ROS: HPI CHIEF COMPLAINT: Left arm this numbness and tingling and heaviness, left facial numbness and tingling HISTORY OF PRESENT ILLNESS: This patient very pleasant 77-year-old female she has a history of atrial fibrillation and on Pradaxa, history of hyponatremia, and hypoxia, low back pain, she presents emergency room with numbness and tingling to left side of her face as well as numbness and tingling to the left arm and describes left arm heaviness. She denies any chest pain or shortness of breath. Denies any weakness. Denies recent illness fever vomiting. Does state that she suffers from AFib. Gets anxious about this. She states her symptoms of her face and arm started around 7 o'clock last night while she was watching TV she has had this for over 12 hr. She did sleep. She woke up with it again. Denies chest pain or shortness of breath. Denies palpitations. States she decided come the emergency room due to the ongoing numbness and tingling. Denies focal weakness. Patient reports to me that she has had this numbness and tingling in her face left arm intermittently many times maybe 5-6 times over the past month. Worse tonight. Past Medical History: Atrial fibrillation on Pradaxa, hyponatremia, low back pain, hypoxia Past Surgical History: Lumbar fusion Social History: Denies drugs alcohol tobacco Family History: Noncontributory ROS REVIEW OF SYSTEMS: A comprehensive 10 point review of systems is otherwise negative aside from elements mentioned in the history of present illness. Exam Constitutional appears well nontoxic slightly anxious, triage nursing summary reviewed, vital signs reviewed, awake/alert. Eyes normal conjunctivae and sclera, EOMI, PERRLA. HENT normal inspection, atraumatic, moist mucus membranes, no epistaxis, neck supple/ no meningismus, no raccoon eyes. Respiratory clear to auscultation bilaterally, normal breath sounds, no respiratory distress, no wheezing. Cardiovascular rate normal, regular rhythm, no murmur, no edema, distal pulses normal. Gastrointestinal soft, non-tender, no rebound, no guarding, normal bowel sounds, no distension, no pulsatile mass. Genitourinary no CVA tenderness. Musculoskeletal no midline vertebral tenderness, full range of motion, no calf swelling, no tenderness of extremities, no meningismus, good pulses, neurovascularly intact. Skin pink, warm, & dry, no rash, skin atraumatic. Neurologic I do not appreciate a focal neuro deficit specifically no weakness of the left side or facial droop, awake, alert and oriented x 3, AAOx3, moves all 4 extremities equally, motor intact, sensory intact, CN II-XII intact, normal cerebellar, normal vision, normal speech. Psychiatric slightly anxious Heme/Lymph/Immune no lymphadenopathy. Differential Diagnosis: Includes but is not limited to in a particular order CVA, TIA, anxiety, acute coronary syndrome, PR, AFib with RVR, AFib, electrolyte disturbance, infection Medical Decision Making: Plan for this patient CT head without contrast rule out bleed, check basic blood work, gentle IV hydration, EKG and troponin. Re-evaluation: EKG interpretation by me on record in [employer] system. Impression time of EKG 6:03 a.m., sinus rhythm rate of 72 no acute ischemic change. Specifically no ST elevation no ST depression no T-wave abnormalities no prolonged intervals. Unremarkable EKG. CT scan head without contrast negative for acute bleed or infarct called to me by Dr. Tyrone Lucero. 0638: Patient resting comfortably no further signs of progression of neurological symptoms at this time. Spoke with the hospitalist service for admission for TIA rule out. Patient CT head without contrast does not show acute stroke or bleed. Will proceed with CT angiogram head and neck. Additionally will admit to the hospitalist service for further evaluation of this and neurology to see. Again here in emergency room the patient has a normal neurological exam no focal weakness. Unclear what is causing her left facial numbness and tingling left arm numbness and tingling and heaviness but no weakness on exam. Spoke with the hospitalist service Dr. Briceño who agrees to admit the patient. Source: Patient - Medical/Surgical History Hx Asthma: No Hx Chronic Respiratory Disease: No Hx Diabetes: No Hx Cardiac Disease: No Hx Renal Disease: No Hx Cirrhosis: No Hx Alcoholism: No Hx HIV/AIDS: No Hx Splenectomy or Spleen Trauma: No Other PMH: Macular degeneration, Bilat Knees, Bilat TKA, Osteoporosis, laminectomy, t spine fusion, afib - Social History Smoking Status: Never smoked Constitutional: Initial Vital Signs Heart Rate 72 10/27/17 05:38 Respiratory Rate 18 10/27/17 05:38 Blood Pressure 173/92 H 10/27/17 05:38 O2 Sat (%) 95 10/27/17 05:38 O2 Delivery Mode Room Air Allergies/Adverse Reactions: Sulfa (Sulfonamide Antibiotics) Allergy (Severe, Verified 10/27/17 05:43) MOUTH SWELLS acetaminophen [From Vicodin] Allergy (Verified 10/27/17 05:43) hydrocodone [From Vicodin] Allergy (Verified 10/27/17 05:43) oxycodone [From Percocet] Allergy (Verified 10/27/17 05:43) LACTOSE INTOLERANT Allergy (Intermediate, Uncoded 11/25/16 23:52) UPSET STOMACH, GAS, IBS, DIARRHEA Home Medications: Medication Instructions Recorded C/E/Zn/Cu/OM3/DHA/EPA/LUT/ZEAX 1 each PO BIDMEAL 03/10/14 [Preservision Areds 2 Softgel] Cholecalciferol Vit D3 [Vitamin D3 1,000 units PO DAILY 03/10/14 (*)] Omeprazole [Prilosec 20 mg] 20 mg PO DAILY 03/10/14 Amoxicillin Trihydrate 500 mg PO TID 10/27/17 [Amoxicillin] Dabigatran Etexilate Mesyl 150 mg PO BIDMEAL 10/27/17 [Pradaxa 150 MG (*)] Gabapentin [Neurontin 100 MG (*)] 200 mg PO DAILY18 10/27/17 Gabapentin [Neurontin 300 MG (*)] 300 mg PO BID@,10/27/17 Medical Decision Making - Data Points Laboratory Results: Laboratory Results 10/27/17 06:00 10/27/17 06:00 Medications Given: Amoxicillin (Amoxicillin) 500 mg PO TID [facility] PRN Reason: Protocol Stop: 10/28/17 23:59 Last Admin: 10/27/17 21:32 Dose: 500 mg Cholecalciferol (Vitamin D) 1,000 units PO DAILY [facility] Stop: 04/25/18 08:59 Last Admin: 10/27/17 09:27 Dose: 1,000 units Dabigatran (Pradaxa) 150 mg PO BIDMEAL [facility] Stop: 09/01/18 08:59 Last Admin: 10/27/17 18:15 Dose: 150 mg Gabapentin (Neurontin) 300 mg PO BID@09,12 PELON Stop: 04/25/18 08:59 Last Admin: 10/27/17 14:12 Dose: 300 mg Gabapentin (Neurontin) 200 mg PO DAILY18 [facility] Stop: 04/25/18 17:59 Last Admin: 10/27/17 18:15 Dose: 200 mg Multivitamins/Minerals (Preservision Areds2 Formula) 1 each PO BIDMEAL [facility] Stop: 04/25/18 17:59 Last Admin: 10/27/17 18:15 Dose: 1 each Pantoprazole Sodium (Protonix) 40 mg PO DAILY [facility] Stop: 04/25/18 08:59 Last Admin: 10/27/17 09:27 Dose: 40 mg Discontinued Medications Sodium Chloride (Ns) 1,000 mls @ 0 mls/hr IV EDNOW ONE; Wide Open PRN Reason: Protocol Stop: 10/27/17 05:55 Last Admin: 10/27/17 06:32 Dose: 1,000 mls Departure - Departure Disposition: [facility] Acute Clinical Impression: TIA (transient ischemic attack) Qualifiers: Transient cerebral ischemia type: unspecified Qualified Code(s): G45.9 - Transient cerebral ischemic attack, unspecified Condition: Fair
--- NOTE | 2017-10-27 06:05 | CPEKG ---
Heart Rate: 72 RR Interval: 833 P-R Interval: 160 QRSD Interval: 72 QT Interval: 384 QTC Interval: 421 P Antelope: 68 QRS Antelope: 26 T Wave Antelope: 21 EKG Severity - NORMAL ECG - EKG Impression: SINUS RHYTHM Electronically Signed By: Yadiel Rico 27-Oct-2017 06:47:17
[2017-10-27 06:11] LABS: PLATELET COUNT 286 10^3/uL (150-400)
[2017-10-27 06:25] LABS: INR 1.03 (0.83-1.16); PROTIME(PATIENT) 13.7 SEC (12.0-15.0)
[2017-10-27] MEDS ORDERED: ONDANSETRON DISINTEGRATING 4 MG TAB PO PRN (06:38)
[2017-10-27] MEDS ORDERED: ONDANSETRON 4 MG/2 ML VIAL IVP PRN (06:38)
--- NOTE | 2017-10-27 07:07 | PDGENHP ---
History and Physical - Chief Complaint Numbness - History of Present Illness 77 yo F w/ AF presents with L arm and facial numbness. Patient states symptoms started around 7 PM last night, ~10 hours prior to presentation. Patient noted intermittent L arm heaviness, numbness, as well as L facial numbness. The L facial numbness still remains but is now subtle. She denies prior personal or family history of stroke. History Information - Allergies/Home Medication List Allergies/Adverse Reactions: Sulfa (Sulfonamide Antibiotics) Allergy (Severe, Verified 10/27/17 05:43) MOUTH SWELLS acetaminophen [From Vicodin] Allergy (Verified 10/27/17 05:43) hydrocodone [From Vicodin] Allergy (Verified 10/27/17 05:43) oxycodone [From Percocet] Allergy (Verified 10/27/17 05:43) LACTOSE INTOLERANT Allergy (Intermediate, Uncoded 11/25/16 23:52) UPSET STOMACH, GAS, IBS, DIARRHEA Home Medications: C/E/Zn/Cu/OM3/DHA/EPA/LUT/ZEAX [Preservision Areds 2 Softgel] 1 each PO BID [Last Taken 10/22/16] Cholecalciferol Vit D3 [Vitamin D3 (*)] 1,000 units PO DAILY 03/10/14 [Last Taken 10/22/16] Omeprazole [Prilosec 20 mg] 20 mg PO DAILY 03/10/14 [Last Taken 11/25/16] Gabapentin [Neurontin 400 MG (*)] 400 mg PO TID 10/03/16 [Last Taken 11/25/16 22 :00] Sennosides/Docusate Sodium [Senokot-S] 1 - 2 tab PO BID PRN 11/26/16 [Last Taken Unknown] I have personally reviewed and updated: family history, medical history - Past Medical History atrial fibrillation - Surgical History Reports: spinal surgery - Family History Additional family history: Denies family hx of stroke - Social History Smoking Status: Never smoked Review of Systems Review of Systems: ROS: 10pt was reviewed & negative except for what was stated in HPI & below Physical Exam Physical Exam: Temp Pulse Resp BP Pulse Ox 73 16 138/77 H 94 10/27/17 06:00 10/27/17 06:00 10/27/17 06:00 10/27/17 06:00 Constitutional: no apparent distress, not in pain Eyes: PERRL, anicteric sclera Ears, Nose, Mouth, Throat: moist mucous membranes, no oral mucosal ulcers Cardiovascular: regular rate and rhythym, systolic murmur Respiratory: no respiratory distress, no rales or rhonchi Gastrointestinal: normoactive bowel sounds, soft, non-tender abdomen Skin: warm, normal color Musculoskeletal: full muscle strength, no muscle tenderness Neurologic: AAOx3, numbness (L face), No weakness, No pronator drift, No facial droop Psychiatric: interacting appropriately, not anxious Lab Data & Imaging Review 10/27/17 06:00 10/27/17 06:00 WBC 5.96 10^3/uL (3.80-9.50) 10/27/17 06:00 RBC 4.85 10^6/uL (4.18-5.33) 10/27/17 06:00 Hgb 15.3 g/dL (12.6-16.3) 10/27/17 06:00 Hct 45.6 % (38.0-47.0) 10/27/17 06:00 MCV 94.0 fL (81.5-99.8) 10/27/17 06:00 MCH 31.5 pg (27.9-34.1) 10/27/17 06:00 MCHC 33.6 g/dL (32.4-36.7) 10/27/17 06:00 RDW 13.1 % (11.5-15.2) 10/27/17 06:00 Plt Count 286 10^3/uL (150-400) 10/27/17 06:00 MPV 10.3 fL (8.7-11.7) 10/27/17 06:00 Neut % (Auto) 51.6 % (39.3-74.2) 10/27/17 06:00 Lymph % (Auto) 36.9 % (15.0-45.0) 10/27/17 06:00 [place] % (Auto) 8.7 % (4.5-13.0) 10/27/17 06:00 Eos % (Auto) 2.2 % (0.6-7.6) 10/27/17 06:00 Baso % (Auto) 0.3 % (0.3-1.7) 10/27/17 06:00 Nucleat RBC Rel Count 0.0 % (0.0-0.2) 10/27/17 06:00 Absolute Neuts (auto) 3.07 10^3/uL (1.70-6.50) 10/27/17 06:00 Absolute Lymphs (auto) 2.20 10^3/uL (1.00-3.00) 10/27/17 06:00 Absolute Monos (auto) 0.52 10^3/uL (0.30-0.80) 10/27/17 06:00 Absolute Eos (auto) 0.13 10^3/uL (0.03-0.40) 10/27/17 06:00 Absolute Basos (auto) 0.02 10^3/uL (0.02-0.10) 10/27/17 06:00 Absolute Nucleated RBC 0.00 10^3/uL (0-0.01) 10/27/17 06:00 Immature Gran % 0.3 % (0.0-1.1) 10/27/17 06:00 Immature Gran # 0.02 10^3/uL (0.00-0.10) 10/27/17 06:00 PT 13.7 SEC (12.0-15.0) 10/27/17 06:00 INR 1.03 (0.83-1.16) 10/27/17 06:00 APTT 38.6 SEC (23.0-38.0) H 10/27/17 06:00 Sodium 146 mEq/L (135-145) H 10/27/17 06:00 Potassium 4.4 mEq/L (3.5-5.2) 10/27/17 06:00 Chloride 106 mEq/L (97-110) 10/27/17 06:00 Carbon Dioxide 28 mEq/l (22-31) 10/27/17 06:00 Anion Gap 12 mEq/L (8-16) 10/27/17 06:00 BUN 16 mg/dL (7-23) 10/27/17 06:00 Creatinine 0.7 mg/dL (0.6-1.0) 10/27/17 06:00 Estimated GFR > 60 10/27/17 06:00 Glucose 96 mg/dL (70-100) 10/27/17 06:00 Calcium 10.3 mg/dL (8.5-10.4) 10/27/17 06:00 Troponin I < 0.012 ng/mL (0.000-0.034) 10/27/17 06:00 Triglycerides 113 mg/dL (35-135) 10/27/17 06:00 Cholesterol 206 mg/dL (140-220) 10/27/17 06:00 Cholesterol Risk Factr 0.5 (0.2-1.0) 10/27/17 06:00 LDL Cholesterol, Calc 116 mg/dL (80-100) H 10/27/17 06:00 LDL Risk Factor 0.6 (0.2-1.0) 10/27/17 06:00 VLDL Cholesterol 22 mg/dL (8-25) 10/27/17 06:00 Non-HDL Cholesterol 138 mg/dL (90-129) H 10/27/17 06:00 HDL Cholesterol 68 mg/dL (40-85) 10/27/17 06:00 LDL/HDL Ratio 1.71 RATIO (1.00-3.22) 10/27/17 06:00 Cholesterol/HDL Ratio 3.03 RATIO (1.00-4.44) 10/27/17 06:00 Imaging Review: CTH Prelim: Atrophy, no acute intracranial findings sphenoid sinusitis d/w SM at 628 Assessment & Plan Assessment: 77 yo F w/ AF present w/ L face and arm numbness possibly c/w stroke or TIA. Plan: 1. TIA, ?stroke - Patient presents with 12 hours of L arm heaviness, numbness, and L facial numbness. Symptoms have mostly resolved aside from subtle L facial numbness. Patient outside of tPA window noting now >12 hours after symptom onset. She does have a hx of AF but is compliant with AC. CTH without acute intracranial findings. - CTA Head/Neck for vascular evaluation - MRI Brain w/o ordered - PT, OT, PROFESSOR OF ECONOMICS evaluations - Lipid panel, A1c - Monitor on telemetry - Neurology consulted, appreciate assistance - Consider ASA, statin 2. AF - On dabigatran for AC, which she is compliant with. NSR on admission ECG. Diet - Regular pending swallow evaluation Code - Full Ppx - Dabigatran Dispo - Admit under observation status
[2017-10-27] MEDS ORDERED: IOPAMIDOL (ISOVUE 370) 100 ML BTL IV ONE (07:13)
[2017-10-27] MEDS ORDERED: NON-FORMULARY NEW DRUG (Omeprazole [Prilosec 20 Mg] 20 MG) PO SCH (09:00)
[2017-10-27] MEDS: DABIGATRAN ETEXILATE MESYL 150 MG CAP PO SCH ×2 (09:26→18:15)
[2017-10-27] MEDS: CHOLECALCIFEROL VIT D3 1,000 UNITS TAB PO SCH (09:27)
[2017-10-27] MEDS: GABAPENTIN 300 MG CAP PO SCH ×2 (09:27→14:12)
[2017-10-27] MEDS: PANTOPRAZOLE SODIUM 40 MG TAB PO SCH (09:27)
--- NOTE | 2017-10-27 12:32 | NEUROPROG ---
Assessment: [id number] - Neurology Consult: - CC: Left face and arm tingling. - HPI: Pt with afib on Pradaxa and prior back surgery (on gabapentin and tramadol) reported intermittent left arm tingling since September 2017. She noted on that the left arm tingling returned and was accompanied by left facial tingling that prompted her to come to the [facility] ED 12 hours after symptom onset. A head CT showed no acute intracranial changes. I initially saw the patient on 10/27/17. She continued to report left face and left arm tingling but no other complaints. - PMHx: afib on Pradaxa, hyponatremia, low back pain, hypoxia, macular degen, B/L knee, osteoporosis, back surgery - Home Meds: omeprazole, gabapentin 400 mg TID, tramadol - SHx: no tobacco FHx: NC - ROS: Pt denied acute fever, total vision loss, active severe chest pain, respiratory failure, total body severe rash, total bowel/bladder incontinence, psychosis, active seizures, or active bleeding - O: VS reviewed General: Alert Eyes: Fundoscopic exam not able to visualize optic disks CV: Heart RRR, no murmur, no carotid bruit Lungs: Clear to auscultation bilaterally, no rhonchi or rales Neuro: - Mental: . Oriented x person/place/date . concentration appears normal . speech fluency/comprehension normal . memory appears normal . fund of knowledge appear intact - Cranial Nerves: . II: PERRL, VFFTC . III/IV/: EOMI, no nystagmus, normal smooth pursuits, no Ptosis . V: facial sensation intact to LT . VII: face symmetric to eye closure and smile . VIII: hearing intact to conversation . IX/X: uvula raises symmetrically . XI: SCM 5/5 B/L strength . XII: tongue protrudes midline w/nl strength - Motor: . Tone: normal tone in all 4 extremity . Strength: no pronator drift, strength 5/5 throughout (B/L delt, bic, tri, hand chief of service, hf/he, df/pf) - Reflexes: B/L bic/BR/patella 2/4 - Sensory: all 4 extremity intact to light touch but patient noted tingling in left face and arm - Coord: [id number] wnl, NURYS wnl, [id number] wnl - Gait: deferred - NIH SS 1 - Labs: 10/27/17- CBC wnl, INR 1.03, Chem Na 146H - Rads: 10/27/17- Head CT: no acute intracranial findings, atrophy, sphenoid sinusitis (I personally visualized the images on 10/27/17) - Assessment: 1. Intermittent left arm tingling > 1 month and left facial tingling on 10/26/17 for > 12 hours: Neurologic exam on 10/27/17 showed left arm/face tingling. WIll get brain MRI, CTA head/neck, and TTE/telemetry to evaluate for any stroke. - 2. Afib on Pradaxa 3. History of back surgery 4. Chronic Pain Disorder on Gabapentin and Tramadol - Plan: - Brain MRI w/o con to assess for stroke - CTA head/neck - TTE, telemetry - Continue Pradaxa for stroke prevention in setting of afib - Labs: LDL, H1AC - Blood pressure goal < 220/120, if brain MRI shows no stroke then goal is < 140 /90 - If brain MRI is unremarkable then proceed to cervical MRI w/o con to assess for symptomatic cervical degenerative disease Objective: Vital Signs Temp Pulse Resp BP Pulse Ox 36.4 C 78 16 126/73 H 92 10/27/17 12:23 10/27/17 12:23 10/27/17 12:23 10/27/17 12:23 10/27/17 12:23 PT 13.7 SEC (12.0-15.0) 10/27/17 06:00 INR 1.03 (0.83-1.16) 10/27/17 06:00 Allergies/Adverse Reactions: Sulfa (Sulfonamide Antibiotics) Allergy (Severe, Verified 10/27/17 05:43) MOUTH SWELLS acetaminophen [From Vicodin] Allergy (Verified 10/27/17 05:43) hydrocodone [From Vicodin] Allergy (Verified 10/27/17 05:43) oxycodone [From Percocet] Allergy (Verified 10/27/17 05:43) LACTOSE INTOLERANT Allergy (Intermediate, Uncoded 11/25/16 23:52) UPSET STOMACH, GAS, IBS, DIARRHEA
--- NOTE | 2017-10-27 14:45 | HOSPPROG ---
Hospitalist Progress Note Assessment/Plan: 77y female with AF c/o arm and face tingling possibly c/w stroke or TIA. Plan: 1. TIA, ?stroke - - Patient presents with 12 hours of L arm heaviness, numbness, and L facial numbness. - Patient outside of tPA window noting now >12 hours after symptom onset. - She does have a hx of AF but is compliant with AC. CTH without acute intracranial findings. - CTA Head/Neck stable - MRI Brain - MRI cervical spine - PT, OT, PRIVATE DUTY NURSE evaluations - Lipid panel, A1c - Monitor on telemetry - Neurology consulted, appreciate assistance - Consider ASA, statin -ECHO 2. AF - - On dabigatran for AC, which she is compliant with. -restarted home meds - NSR on admission ECG. Diet - Regular Code - Full Ppx - Dabigatran Dispo - Admit under observation status e Subjective: Still having numbness in left arm and face. No pain. Objective: Vital Signs Temp Pulse Resp BP Pulse Ox 36.4 C 78 16 126/73 H 92 10/27/17 12:23 10/27/17 12:23 10/27/17 12:23 10/27/17 12:23 10/27/17 12:23 PT 13.7 SEC (12.0-15.0) 10/27/17 06:00 INR 1.03 (0.83-1.16) 10/27/17 06:00 - Physical Exam Constitutional: no apparent distress, appears nourished Eyes: PERRL, anicteric sclera Ears, Nose, Mouth, Throat: moist mucous membranes, hearing normal Cardiovascular: No JVD, No edema Respiratory: no respiratory distress, reduced air movement Gastrointestinal: No tenderness, No ascites Skin: warm, normal color Musculoskeletal: no joint effusions, generalized weakness Neurologic: AAOx3 Psychiatric: interacting appropriately, not anxious, not encephalopathic ICD10 Worksheet Patient Problems: Problems Problem Status Onset TIA (transient ischemic attack) Acute Atrial fibrillation with RVR Acute CHF exacerbation Acute Elevated troponin Acute Hyponatremia Acute Primary osteoarthritis of right hip Acute Volume overload Acute
--- NOTE | 2017-10-27 15:45 | ECHO ---
[email or web address] [address] Main: [phone] Fax: Transthoracic Echocardiogram Name: JESUS NELSON MR#: [id number] Study Date: 10/27/2017 Study Time: 10:10 AM Date of : 1940 Age: 77 year(s) Height: 154.9 cm (61 in.) Weight: 55.79 kg (123 lb.) BSA: 1.54 m2 Gender: Female Examination: Complete Echo with Agitated Saline Indication: TIA Image Quality: Contrast: Requested by: Ritchie Jason BP: 164 mmHg/90 mmHg Heart Rate: Rhythm: Normal sinus rhythm Indication: TIA Procedure Staff Assistant Professor Of Archaeology: Moses Mcdonald RDCS Reading Physician: Ramirez Hussein MD Requesting Provider: Conclusions: Normal size left ventricle. No LV hypertrophy. Normal global systolic LV function. EF is 70 %. No regional wall motion abnormality. Diastolic dysfunction is present. . Normal size right ventricle. The left atrium is normal in size. An agitated saline study was performed and was negative for intracardiac shunting. The right atrium is normal in size. The mitral valve is normal in appearance. Mild mitral valve regurgitation is present. The aortic valve is tri-leaflet and functions normally. The tricuspid valve is normal in appearance and function. The aorta is normal. Measurements: Chambers Valvular Assessment AV/MV Valvular Assessment TV/PV Normal Normal Normal Name Value Range Name Value Range Name Value Range Ao Yamilka (MM): 2.6 cm (2.2 cm-3.7 AV Vmax: 1.05 m/s (1 m/s-1.7 PV Vmax: 0.88 m/s (0.6 m/s-0.9 cm) m/s) m/s) IVSd (2D): 0.9 cm (0.6 cm-1.1 AV maxP mmHg ( - ) PV PGmax: 3 mmHg ( - ) cm) LVOT Vmax: 0.67 m/s (0.7 m/s-1.1 LVDd (2D): 3.7 cm (3.9 cm-5.3 m/s) cm) MV E Vmax: 0.42 m/s ( - ) LVDs (2D): 2.3 cm (2.1 cm-4 MV A Vmax: 0.71 m/s ( - ) cm) MV E/A: 0.59 ( - ) LVPWd (2D): 1.0 cm ( - ) LVEF (2D): 70 (>=54 %) Patient: JESUS NELSON Study Date: 10/27/2017 Page 1 of 2 10:10 AM Continued Measurements: Chambers Name Value LADs: 2.7 cm LADs Lon.5 cm LA Area: 14.9 cm2 LA Volume: 35 ml LA Volume Index: 22.7 ml/m2 Findings: Left Ventricle: Normal size left ventricle. No LV hypertrophy. Normal global systolic LV function. EF is 70 %. No regional wall motion abnormality. Diastolic dysfunction is present. . Right Ventricle: Normal size right ventricle. Normal RV function. Left Atrium: The left atrium is normal in size. An agitated saline study was performed and was negative for intracardiac shunting. Right Atrium: The right atrium is normal in size. Mitral Valve: The mitral valve is normal in appearance. Mild mitral valve regurgitation is present. Aortic Valve: The aortic valve is tri-leaflet and functions normally. Tricuspid Valve: The tricuspid valve is normal in appearance and function. Pulmonic Valve: Pulmonary valve not well visualized. Aorta: The aorta is normal. Pericardium: No pericardial effusion. (No Signature Object) Patient: JESUS NELSON Study Date: 10/27/2017 Page 2 of 2 10:10 AM [id number]
[2017-10-27] MEDS ORDERED: GABAPENTIN 100 MG CAP PO SCH (18:00)
[2017-10-27] MEDS: PRESERVISION AREDS2 FORMULA EYE VIT 1 EACH PO SCH (18:15)
[2017-10-28] MEDS: CHOLECALCIFEROL VIT D3 1,000 UNITS TAB PO SCH (07:55)
[2017-10-28] MEDS: PRESERVISION AREDS2 FORMULA EYE VIT 1 EACH PO SCH (07:55)
[2017-10-28] MEDS: DABIGATRAN ETEXILATE MESYL 150 MG CAP PO SCH (07:55)
[2017-10-28] MEDS: PANTOPRAZOLE SODIUM 40 MG TAB PO SCH (07:56)
[2017-10-28] MEDS: GABAPENTIN 300 MG CAP PO SCH (07:56)
[2017-10-28 08:16] VITALS: BP 123/54; PULSE 71; RESP 17; TEMP 97.6; O2SAT 94
--- NOTE | 2017-10-28 08:53 | HOSPPROG ---
Hospitalist Progress Note Assessment/Plan: Calra Lopez is a 77 y/o female who presented to the ER with left facial and left arm numbness. Today is my first encounter w her, reviewed her care w Dr Rasmussen. * TIA, ?stroke - - Patient presents with 12 hours of L arm heaviness, numbness, and L facial numbness. -CT of head without acute findings -echocardiogram shows an EF of 70% without any regional wall abnormalities, no intracardiac shunt noted -on the monitoring analyst she has been in sinus rhythm -LDL is elevated at 116 would recommend a statin (she prefers to talk w her PCP about this) -hemoglobin A1c is slightly elevated at 6.2 with an average glucose of 131 (she is aware of this, on diet and exercise to help w this, will f/u w PCP) * intermittent arm tingling greater than 1 month / cervical DDD -will ask neurosurgery to see * history of atrial fibrillation -on Pradaxa *recent tooth infection -on amoxicillin -seeing the dentist today at 2:30 *Plan: dc soon, community center worker checking to see when neurosurgery will be by, patient is very anxious for dc. Subjective: Carla is feeling well, has no complaints, anxious for dc. Objective: Vital Signs Temp Pulse Resp BP Pulse Ox 36.4 C 71 17 123/54 H 94 10/28/17 08:00 10/28/17 08:00 10/28/17 08:00 10/28/17 08:00 10/28/17 08:00 10/27/17 10/28/17 10/29/17 05:59 05:59 05:59 Intake Total 1400 Balance 1400 PT 13.7 SEC (12.0-15.0) 10/27/17 06:00 INR 1.03 (0.83-1.16) 10/27/17 06:00 - Physical Exam Constitutional: no apparent distress, appears nourished, not in pain Eyes: PERRL Ears, Nose, Mouth, Throat: hearing normal Cardiovascular: regular rate and rhythym, no murmur, rub, or gallop Respiratory: no respiratory distress Gastrointestinal: normoactive bowel sounds Skin: warm Musculoskeletal: full muscle strength Neurologic: AAOx3, CN II-XII Intact, No weakness, No numbness, No pronator drift , No facial droop Psychiatric: interacting appropriately, not anxious ICD10 Worksheet Patient Problems: Problems Problem Status Onset TIA (transient ischemic attack) Acute Atrial fibrillation with RVR Acute CHF exacerbation Acute Elevated troponin Acute Hyponatremia Acute Primary osteoarthritis of right hip Acute Volume overload Acute
--- NOTE | 2017-10-28 13:09 | GDS ---
[f rep st] DISCHARGE SUMMARY DISCHARGE DIAGNOSES: 1. Concern for a transient ischemic attack with associated left arm weakness and left facial tingling. 2. Intermittent arm tingling greater than a month. 3. History of atrial fibrillation, currently in sinus rhythm. 4. Recent tooth infection, on antibiotics. CONSULTATIONS: Lauro Rasmussen DO. Briefly, the patient is a 77-year-old woman who has a history of atrial fibrillation, is on Pradaxa for this, and had a prior back surgery. She has had intermittent left arm tingling since September 2017. On October 26, she noted that the left arm tingling returned and was accompanied by left facial tingling. She was very concerned she may have had a stroke. She came to the emergency room for further evaluation. A brain MRI was performed, showed mild cerebral atrophy. She had no acute infarct, acute hemorrhage, or hydrocephalus. She has several nonspecific hyperintense T2 FLAIR signal abnormalities in the white matter of bilateral cerebral hemispheres. A head and neck CTA was performed which showed nothing acute. She had no vascular findings. She has [id number] multilevel degenerative changes in the cervical spine. Subsequently, a cervical spine MRI was performed. This showed multilevel [id number] degenerative disk disease, worse from C3-C4 through C6-C7 with dorsal disk osteophyte complexes and bilateral uncovertebral osteophytes of multilevel moderate bilateral facet arthropathy from C2-C3 through C7 and T1. Also at C7-T1, shows multiple central canal stenosis. She will see Neurosurgery in the outpatient setting. Her symptoms have completely resolved. HOSPITAL COURSE: Per problem: 1. Initial concern for TIA/stroke. MRI shows nothing acute. An echocardiogram was performed, which showed an EF of 70% without any regional wall abnormality. She has no intracardiac shunt noted. LDL is elevated at 116. I recommended a statin. She prefers to talk to her primary care provider. Her hemoglobin A1c is elevated. She said this has been elevated in the past. She would like to further discuss treatment options with her PCP. She has been encouraged to return to the ER if she should have any further stroke symptoms. I reviewed the hall monitor; she has been in sinus rhythm. No atrial fibrillation is noted. 2. Intermittent arm tingling greater than a month. Reviewed her MRI. She has cervical degenerative disk disease. Neurosurgery in the outpatient setting. 3. History of atrial fibrillation, on Pradaxa. 4. Recent tooth infection. She is on amoxicillin. She has a dentist appointment today. DISCHARGE CONDITION: Stable. Blood pressure is 123/54, heart rate is 71, respiratory rate is 17, O2 sats on room air 94%. Temperature is 36.4 Celsius. DISCHARGE MEDICATIONS: Please see the EMR. DISCHARGE INSTRUCTIONS: 1. To further follow up with her primary care provider in regard to her LDL and A1c. 2. Follow up with Neurosurgery. She has an appointment set up with Dr. Pearce. 3. If she develops any signs or symptoms of stroke, return to the ER. /[id number]/MODL MTDD
--- NOTE | 2017-10-28 13:36 | ASDISCHSUM ---
Discharge Information Plan Status:Home with No Needs Medically Cleared to Leave: Discharge Date:10/28/2017 12:43 PM CM D/C Disposition:Home, Routine, Self-Care ADT D/C Disposition:Home, Routine, Self-Care Projected Discharge Date:10/28/2017 12:43 PM Transportation at D/C: Discharge Delay Reason: Follow-Up Date:10/28/2017 12:43 PM Discharge Slot: Final Diagnosis: Placement Information Patient Contact Information Contact Name:RADHA Relationship: Address:[address] [place] Alternate Phone: [facility]/Zip Code:[place] [address] Email: Financial Information Financial Class:Medicare Primary Plan Desc:MEDICARE OUTPATIENT Primary Plan Number:[id number] [facility] Secondary Plan Number:[id number] Assessment Information [facility] CM Progress Note CM Note CM Note Notes: Pt in for TIA, L arm weakness/tingling is symptom. Head CT find nothing acute. Pt lives w spouse. OT/MICROFILMING DOCUMENT PREPARER clear pt for home. No CM d/c needs identified. Pt to follow up w [facility] outpatient. Date Signed: 10/28/2017 01:35 PM Electronically Signed By:TOSHIA Snell Intervention Information Intervention Type:*NELI-Signed Date of Service:10/27/2017 10:48 AM Patient Type:Observation Staff Member:Bonnie Mcnair Hours: Discipline: Severity: Comment:
--- NOTE | 2017-10-28 13:36 | ASMTCMCOM ---
CM Note CM Note Notes: Pt in for TIA, L arm weakness/tingling is symptom. Head CT find nothing acute. Pt lives w spouse. OT/TAPPER SUPERVISOR clear pt for home. No CM d/c needs identified. Pt to follow up w [facility] outpatient. Date Signed: 10/28/2017 01:35 PM Electronically Signed By:TOSHIA Snell
== END 2017-10-28 12:43 | disposition home or self-care (01) ==
LOC: F3N 07:56
PROVIDERS: ADMIT Student in an Organized Health Care Education/Training Program; ATTEND Internal Medicine
DX: R20.2 Paresthesia of skin (principal); R29.90 Unspecified symptoms and signs involving the nervous system; I48.91 Unspecified atrial fibrillation; R29.701 NIHSS score 1; E86.9 Volume depletion, unspecified; M50.30 Other cervical disc degeneration, unspecified cervical region; M48.03 Spinal stenosis, cervicothoracic region; M81.0 Age-related osteoporosis without current pathological fracture; G89.29 Other chronic pain; Z79.2 Long term (current) use of antibiotics; Z96.653 Presence of artificial knee joint, bilateral; Z96.643 Presence of artificial hip joint, bilateral; Z88.2 Allergy status to sulfonamides; Z98.1 Arthrodesis status
CPT/HCPCS: 70450; 70496; 70498; 70551; 72141; 92610; 93005; 93306; 97165; 99285; G0378; G8987; G8988; G8989; G8996; G8997; G8998; Q9967

== ENCOUNTER → 2018-01-15 | Outpatient (CLI) | payer OTHER | LOC: BMCIMAGING 12:55 | PROVIDERS: ATTEND Internal Medicine | DX: M50.30 Other cervical disc degeneration, unspecified cervical region (principal); M48.02 Spinal stenosis, cervical region; M43.12 Spondylolisthesis, cervical region ==

== ENCOUNTER → 2018-06-23 | Outpatient (CLI) | payer OTHER | LOC: BMCIMAGING 09:42 | PROVIDERS: ATTEND Internal Medicine Rheumatology | DX: Z13.820 Encounter for screening for osteoporosis (principal); M81.0 Age-related osteoporosis without current pathological fracture; Z98.1 Arthrodesis status ==

== ENCOUNTER → 2018-08-04 | Outpatient (CLI) | payer OTHER | LOC: BMCIMAGING 08:21 | PROVIDERS: ATTEND Internal Medicine | DX: R93.7 Abnormal findings on diagnostic imaging of other parts of musculoskeletal system (principal); M41.24 Other idiopathic scoliosis, thoracic region ==

== ENCOUNTER → 2018-08-07 | Outpatient (CLI) | payer OTHER | LOC: BMCIMAGING 14:45 | PROVIDERS: ATTEND Internal Medicine | DX: Z12.31 Encounter for screening mammogram for malignant neoplasm of breast (principal) ==

== ENCOUNTER → 2018-08-13 | Outpatient (CLI) | payer OTHER | LOC: FIMAGING 13:34 | PROVIDERS: ATTEND Internal Medicine | DX: M54.6 Pain in thoracic spine (principal); M81.0 Age-related osteoporosis without current pathological fracture ==

== ENCOUNTER → 2018-08-31 | Outpatient (CLI) | payer OTHER | LOC: FIMAGING 19:09 | PROVIDERS: ATTEND Otolaryngology | DX: R93.7 Abnormal findings on diagnostic imaging of other parts of musculoskeletal system (principal) ==